=== PATIENT | female | born 1945 | race Caucasian/White ===

== ENCOUNTER 2022-01-11 16:44 | Inpatient (IN) ==
[2022-01-11] MEDS ORDERED: ONDANSETRON 4 MG/2 ML VIAL IV ONE (17:15)
--- NOTE | 2022-01-11 17:17 | Emergency Department Note ---
HPI General Chief complaint: Extremity Injury, Upper Stated complaint: rt shoulder pain Time Seen by Provider: 01/11/22 16:47 Source: patient and EMS Mode of arrival: EMS History of Present Illness HPI Narrative: Narrative: This patient presents by EMS with a complaint of right shoulder and wrist pain following a fall. Patient was getting of the shower when she slipped. She sustained injuries to the right arm and she fell. She reports she did not hit her head or lose consciousness. She noted obvious deformity to the right wrist and requested EMS. EMS placed the arm in a sling and transported her here to the Emergency Department. Unfortunately it was a BLS unit and she was unable to receive any pain medication. She is complaining of significant discomfort to the right arm, primarily the right wrist. She reports no other injuries. Related Data Allergies Allergy/AdvReac Type Severity Reaction Status Date / Time No Known Drug Allergies Allergy Unverified 01/11/22 16:50 Review of Systems ROS ROS Narrative: Narrative: Pertinent positives and negatives as noted in HPI. All other systems reviewed and negative. [facility] Narrative Patient History Narrative: Narrative: Medical/Surgical/Family History All Active Problems (Updated 01/11/22 @ 20:22 by Susy Bateman PA-C) Fracture of humerus (Acute) Fracture of wrist (Acute) Exam Narrative Narrative: Narrative: Vital signs noted General: Moderate distress. Nontoxic Mouth: Mucus membranes moist, Normal inspection Cardiovascular: Regular rate and rhythm. No murmur. Respiratory: No respiratory distress. Breath sounds equal. No wheezes/rales/rhonchi. Musculoskeletal: Obvious deformities right wrist. Neurovascular intact to the digits. Swelling noted to the right shoulder as well. No tenderness to palpation of the elbow. Skin: Warm. Dry. Normal color. No rash Neurological: Alert. Oriented x3. Course Course Course Narrative: IVs established patient medicated with Dilaudid for pain and Zofran for nausea. X-rays of the right wrist and right shoulder reviewed by myself to be significant for fracture of the proximal humeral head as well as distal ulna and radius fractures. Patient is discussed with on-call orthopedic surgeon Dr. Tian who will repair the patient's wrist fracture tomorrow. He also request CT of the humeral head to better determine the morphology of the fracture. Patient is medicated with hematoma block of the ulna and radius and the fracture is reduced is much as possible here in the emergency department. There is still significant displacement after reduction. Patient will be having surgery tomorrow and no further reduction is attempted. Patient is discussed and accepted by the hospitalist service for observational admit of right wrist fracture with anticipation of surgical repair as well as pain management for humeral head fracture and intractable pain Vital Signs Vital signs: Vital Signs Temperature 97.7 F 01/11/22 16:45 Pulse Rate 69 01/11/22 16:45 Respiratory Rate 20 01/11/22 16:45 Blood Pressure 180/87 01/11/22 16:45 Pulse Oximetry (%) 100 01/11/22 16:45 Oxygen Delivery Method 01/11/22 16:45 Temperature 97.7 F 01/11/22 16:45 Pulse Rate 69 01/11/22 19:53 Respiratory Rate 20 01/11/22 16:45 Blood Pressure 143/82 01/11/22 19:53 Pulse Oximetry (%) 93 01/11/22 19:53 Oxygen Delivery Method 01/11/22 16:45 MDM MDM Narrative Medical decision making narrative: Narrative: Discharge Plan Patient/Caregiver Discharge Instructions Pt seen by BOAT REPAIRER/PA only: Yes Clinical Impression: Fracture of humerus, Fracture of wrist Patient Disposition: Xfer As Outpt/Obs ([facility]) Follow up with: Cayetano Ambrose [Primary Care Provider] - Blayne Tian MD [Physician] -
[2022-01-11] MEDS: HYDROmorphone 0.5 MG/0.5 ML SYRINGE IV PRN ×4 (17:37→19:27)
--- NOTE | 2022-01-11 18:08 | XRay Report ---
CLINICAL INFORMATION: Trauma COMPARISON: None. FINDINGS: Sagittal fracture through the lateral humeral and anatomic neck of the humerus appreciated. Lateral fragment displaced 5 mm posteriorly and laterally. Moderate acromioclavicular degeneration noted. The humeral joint is normal. Moderate soft tissue swelling appreciated. IMPRESSION: Sagittally oriented nondisplaced fracture through the humeral head and lateral anatomic neck of the humerus Interpreted and Authenticated by: Vladimir Benavides 01/11/22
--- NOTE | 2022-01-11 18:11 | XRay Report ---
CLINICAL INFORMATION: Trauma COMPARISON: None FINDINGS: Obliquely oriented severely comminuted Colles' fracture of the distal radial metaphysis and epiphysis appreciated. Distal fragment is displaced 2 cm dorsally and there is 30 degrees distal angulation of fracture fragment. There is also moderately comminuted fracture of the distal ulnar metaphysis and epiphysis with the proximal fragment displaced entire shaft width in a volar soft tissues. Marked soft tissue swelling appreciated IMPRESSION: Severely comminuted displaced and angulated Colles' fracture distal radius Severely comminuted fracture distal ulna metaphysis and epiphysis. Proximal fragment is displaced entire shaft width into the bulbar soft tissues. Interpreted and Authenticated by: Vladimir Benavides 01/11/22
--- NOTE | 2022-01-11 20:03 | Internal Med History&Physical ---
HPI History of Present Illness Patient information: Note initiated : 01/11/22 at 7:54 pm Service Date, if different from initiated Date: [] Patient: Danette Benedict a 76 y/o F admitted on for rt shoulder pain. Chief Complaint: [] History of present illness: Ms. Benedict is a 76 year old F Presents to the ED after fall onto her right side getting out of the shower resulting in right shoulder pain and right wrist pain. No loss of consciousness did not hit her head. Patient in significant pain. Because of the severity of the wrist fracture is extremely difficult to reduce and is not maintaining reduction. Work-up in ED showed severely comminuted and displaced Colles' fracture of the wrist And nondisplaced fracture through the humeral head and lateral anatomic neck of the humerus. Dr. Tian was contacted orthopedic surgery. Laboratory pending including chest x-ray and EKG which will be reviewed. Patient has a history of rheumatoid arthritis and osteoporosis. On methotrexate and infusions. Review of Systems: Pertinent positives as above denies headache/fever/chills/nausea/vomiting/chest or abdominal pain/cough/dyspnea/diarrhea. Remaining 10 point review of system reviewed negative PFSH PFSH All Active Problems (Updated 01/11/22 @ 20:22 by Susy Bateman PA-C) Fracture of humerus (Acute) Fracture of wrist (Acute) MEDS/ALLERGIES Home Medications and Allergies Allergies Allergy/AdvReac Type Severity Reaction Status Date / Time No Known Drug Allergies Allergy Unverified 01/11/22 16:50 EXAM Constitutional Vitals: Temp Pulse Resp BP Pulse Ox O2 Del Method 97.7 F 55 L 20 129/71 99 01/11/22 16:45 01/11/22 18:55 01/11/22 16:45 01/11/22 18:46 01/11/22 18:55 01/11/22 16:45 Exam: General: Alert, Awake, mild distress from pain Eyes/N/T: EOMI, PERRL, dry MM Head/Neck: neck supple, normocephalic atraumatic CV: RRR, No murmurs, normal s1/s2 Pulm: Clear b/l, no wheezing/rhonchi/rales Abd: soft, nontender, +BS x4 Ext: no clubbing/cyanosis, trace b/l LE edema. Right shoulder in sling, right wrist in splint Neuro: Alert, no focal deficits, moves all extremities, CN 2-12 grossly intact, sensations intact b/l upper/lower Skin: warm/dry A/P Narrative A/P Narrative: A: *GL Fall w/trauma to RUE: *Right wrist fracture: *Right shoulder fracture: *Rheumatoid arthritis: on MTX *Osteoporosis: *Leukocytosis: Likely reactive, follow-up *Hyponatremia: *Transaminitis: P: -Dr. Tian for orthopedic repair -PT/OT -Pain control -f/u na, lfts, chem, cbc -EKG/chest x-ray pending and will be reviewed -Splint to the right shoulder -wrist in splint -N.p.o. after midnight, IVF -Home medication reconciliation, continue pertinent medications -CM for placement needs -ppx: SCD until surgery and likely chemical postop Time Spent With Patient Time: Total time spent is greater than 50% in coordination of care (as documented) at patient's floor/unit and/or counseling patient: Total time spent with greater than 50% in coordination of care (as documented) at patient's floor/unit and/or counseling patient:: Greater than 70 minutes
[2022-01-11 20:59] LABS: Basophils # (Auto) 0.06 K/mcL (0.00-0.30); Basophils % (Auto) 0.3 % (0.0-2.0); Eosinophils # (Auto) 0.01 K/mcL (0.00-0.70); Eosinophils % (Auto) 0.1 % (0.0-7.0); Hematocrit 38.9 % (34.1-44.9); Lymphocytes # (Auto) 1.29 K/mcL (1.50-4.80); Mean Cell Volume 94.9 fL (80.0-100.0); Mean Corpuscular HGB Conc 33.4 g/dL (31.0-36.0); Platelet Count 248 K/mcL (140-440); Red Cell Distribution Width 12.8 % (11.5-14.5); WBC 18.5 K/mcL (4.5-11.0)
[2022-01-11] MEDS ORDERED: MAGNESIUM SULFATE 2 GM/50 ML BAG IV PRN (21:09)
[2022-01-11] MEDS ORDERED: ACETAMINOPHEN 325 MG TABLET PO PRN (21:09)
[2022-01-11] MEDS ORDERED: POTASSIUM CHLORIDE 20 MEQ TABLET PO PRN ×2 (21:09)
[2022-01-11] MEDS ORDERED: POTASSIUM CHLORIDE 40 MEQ in DEXTROSE 5% IN WATER 500 ML IV PRN (21:09)
[2022-01-11] MEDS ORDERED: ONDANSETRON 4 MG/2 ML VIAL IV PRN (21:09)
[2022-01-11] MEDS ORDERED: SENNOSIDES 1 TABLET PO PRN (21:09)
[2022-01-11] MEDS ORDERED: IPRATROPIUM/ALBUTEROL 3 ML AMPUL.NEB NEB PRN (21:09)
[2022-01-11] MEDS ORDERED: POLYETHYLENE GLYCOL 3350 17 GM PACKET PO PRN (21:09)
[2022-01-11 21:27] LABS: ALT/SGPT 42 U/L (<40); AST/SGOT 41 U/L (<32); Albumin 3.6 gm/dL (3.2-5.2); Albumin/Globulin Ratio 1.1 (1.0-2.3); Alkaline Phosphatase 109 U/L (39-117); Bilirubin,Total 0.5 mg/dL (0.1-1.0); Blood Urea Nitrogen 11 mg/dL (8-23); Carbon Dioxide 25 mmol/L (22-30); Chloride 98 mmol/L (96-108); Globulin 3.2 gm/dL (2.2-3.7); Glomerular Filtration Rate 83; Glucose 187 mg/dL (70-105)
[2022-01-11] MEDS: DOCUSATE SODIUM 100 MG CAPSULE PO SCH (21:41)
[2022-01-11] MEDS: 0.9 % SODIUM CHLORIDE 10 ML SYRINGE IV SCH (21:47)
[2022-01-11] MEDS: HYDROcodone/APAP 5/325MG TABLET PO PRN (22:24)
[2022-01-11] MEDS: 0.9 % SODIUM CHLORIDE 1,000 ML IV SCH (23:31)
[2022-01-11] MEDS: morphine 4 MG/ML VIAL IV PRN (23:31)
--- NOTE | 2022-01-12 01:28 | XRay Report ---
CLINICAL INFORMATION: Postreduction Colles' fracture of the distal radius and distal ulnar fracture COMPARISON: Prereduction films 01/11/2022 1752 hours FINDINGS: Casted films shows comminuted Colles' fracture distal radius shows slight improved alignment. There is still 8 mm of dorsal and radial displacement by the distal fragment. Angulation deformity has been corrected however. The comminuted fracture of the distal ulna is in near-anatomic alignment. There is volar dislocation of the ulnar carpal joint. IMPRESSION: Following closed reduction, persistent displacement deformity of the Colles' fracture. Comminuted ulnar fracture is anatomically aligned, however there is volar dislocation of the ulnar carpal joint Interpreted and Authenticated by: Vladimir Benavides 01/12/22
--- NOTE | 2022-01-12 01:28 | XRay Report ---
CLINICAL INFORMATION: Weakness COMPARISON: 11/27/2013 TECHNIQUE: Portable FINDINGS: The heart size, mediastinum and pulmonary vessels are unremarkable. The lungs are clear. There are no effusions. The bones and soft tissues are within normal limits. IMPRESSION: Normal chest. Interpreted and Authenticated by: Vladimir Benavides 01/12/22
[2022-01-12] MEDS: HYDROcodone/APAP 5/325MG TABLET PO PRN ×5 (01:59→21:43)
--- NOTE | 2022-01-12 02:47 | Cat Scan Report ---
CLINICAL INFORMATION: Trauma COMPARISON: None. TECHNIQUE: 0.625 mm helical slices were obtained through the right shoulder, and following reconstruction, 2.5 mm sagittal, coronal and axial reformations were then processed. The exam was reviewed at bone and soft tissue windows. The exam was performed using radiation dose optimization techniques including, but not limited to, automated exposure control, adjustment of the mA and/or kV according to patient size and use of iterative reconstruction technique. FINDINGS: A severely comminuted fracture involving the humeral head and anatomic neck with extension to the surgical neck is appreciated. The humeral diaphysis is displaced approximately 8 mm anteriorly and is angulated approximately 70 degrees posteriorly. The articulating surface of the humeral head fragment demonstrates posterior rotary subluxation. There are also comminuted fragments involving the greater and lesser tuberosity bases. Moderate edema is seen in the adjacent muscle and fascial planes. The acromial clavicular joint is normal. In the right lung, there is a 2.3 cm bleb in the lateral inferior upper lobe with mild atelectasis present in the posterior lower lobe IMPRESSION: Severely comminuted, displaced and angulated fracture of the humeral head and anatomic neck Interpreted and Authenticated by: Vladimir Benavides 01/12/22
[2022-01-12] MEDS: morphine 4 MG/ML VIAL IV PRN ×3 (04:36→15:59)
[2022-01-12] MEDS: 0.9 % SODIUM CHLORIDE 10 ML SYRINGE IV SCH ×3 (05:36→21:37)
[2022-01-12 07:07] LABS: Basophils # (Auto) 0.05 K/mcL (0.00-0.30); Basophils % (Auto) 0.4 % (0.0-2.0); Eosinophils # (Auto) 0.01 K/mcL (0.00-0.70); Eosinophils % (Auto) 0.1 % (0.0-7.0); Hematocrit 37.5 % (34.1-44.9); Hemoglobin 12.1 g/dL (11.2-15.7); Lymphocytes # (Auto) 2.75 K/mcL (1.50-4.80); Lymphocytes % (Auto) 21.7 % (15.5-49.0); Mean Cell Volume 97.4 fL (80.0-100.0); Mean Corpuscular HGB Conc 32.3 g/dL (31.0-36.0); Mean Platelet Volume 11.1 fL (8.8-12.5); Monocytes # (Auto) 1.75 K/mcL (0.10-0.90); Monocytes % (Auto) 13.8 % (1.0-12.0); Neutrophils % (Auto) 63.4 % (38.0-78.0); Platelet Count 238 K/mcL (140-440); RBC 3.85 M/mcL (3.59-5.38); Red Cell Distribution Width 12.9 % (11.5-14.5); WBC 12.7 K/mcL (4.5-11.0)
--- NOTE | 2022-01-12 07:37 | Internal Med Progress Note ---
SUBJECTIVE Subjective Patient information: Note initiated : 01/12/22 at 7:35 am Service Date, if different from initiated Date: [] Patient: Danette Benedict 76 y/o F admitted on 01/11/22 for rt shoulder pain. Chief Complaint: [] Interval history: History of present illness: Ms. Benedict is a 76 year old F Presents to the ED after fall onto her right side getting out of the shower resulting in right shoulder pain and right wrist pain. No loss of consciousness did not hit her head. Patient in significant pain. Because of the severity of the wrist fracture is extremely difficult to reduce and is not maintaining reduction. Work-up in ED showed severely comminuted and displaced Colles' fracture of the wrist And nondisplaced fracture through the humeral head and lateral anatomic neck of the humerus. Dr. Tian was contacted orthopedic surgery. Laboratory pending including chest x-ray and EKG which will be reviewed. Patient has a history of rheumatoid arthritis and osteoporosis. On methotrexate and infusions. 01/12 Patient postop for ORIF of the wrist. Shoulder in sling. Patient bit drowsy postop. Reactive leukocytosis, sodium a little better. Transaminitis mild improving. Patient also found a fracture of the right tibial plateau. Trauma with multiple fractures. Patient quite debilitated. Further orthopedic treatment. Review of Systems: denies headache/fever/chills/nausea/vomiting/chest or abdominal pain/cough/dyspnea/diarrhea. Otherwise see above. Constitutional Vitals: Vital Signs Temp Pulse Resp BP Pulse Ox O2 Del Method 98.2 F 70 16 131/76 99 01/12/22 07:26 01/12/22 07:26 01/12/22 07:26 01/12/22 07:26 01/12/22 07:26 01/12/22 07:26 Period Temp Pulse Resp BP Sys/Harper Pulse Ox O2 Del Method O2 Flow Rate Last 24 Hr 97.0 F-98.2 F 43-70 16-20 99-180/67-87 93-100 Room Air-Room Air Intake and Output 01/11/22 01/12/22 01/12/22 19:59 03:59 11:59 Intake Total 300 Balance 300 Weight 65.317 kg 62.233 kg Intake & Output: Intake & Output 01/11/22 01/12/22 01/12/22 19:59 03:59 11:59 Intake Total 300 Balance 300 Weight 65.317 kg 62.233 kg Intake: Oral 300 Exam: General: Drowsy, no acute distress Eyes/N/T: EOMI, Head/Neck: neck supple, CV: RRR, No murmurs, Pulm: Clear b/l, no wheezing/rhonchi/rales Abd: soft, nontender, +BS x4 Ext: no clubbing/cyanosis, trace b/l LE edema. Right shoulder in sling, right wrist surgical dressings Neuro: Drowsy, no focal deficits, moves all extremities, Skin: warm/dry OBJ DATA Labs CBC & Chem 7: 01/12/22 05:29 01/12/22 05:29 Labs: Abnormal Lab Results 01/12/22 01/11/22 01/11/22 05:29 20:26 20:26 WBC 12.7 H 18.5 H Immature Gran % (Auto) 0.6 H 0.6 H Neut % (Auto) 85.0 H Lymph % (Auto) 7.0 L [place] % (Auto) 13.8 H Lymph # (Auto) 1.29 L [place] # (Auto) 1.75 H 1.30 H Immature Gran # 0.07 H 0.11 H Absolute Neutrophils 8.04 H 15.76 H Sodium 132 L Glucose 187 H AST 41 H ALT 42 H Meds: Medications Acetaminophen (Acetaminophen 325 Mg Tablet) 650 mg PO Q6HP PRN; Protocol PRN Reason: Per Pain Protocol/Fever > 101 Hydrocodone Bitart/Acetaminophen (Hydrocodone/Apap 5/325mg Tablet) 1 tab PO Q4HP PRN PRN Reason: PAIN LEVEL 3-6 Last Admin: 01/12/22 01:59 Dose: 1 tab Albuterol/Ipratropium (Ipratropium/Albuterol 3 Ml Ampul.Neb) 3 ml NEB Q4HP PRN PRN Reason: Shortness Of Breath Docusate Sodium (Docusate Sodium 100 Mg Capsule) 100 mg PO BID [place] Last Admin: 01/11/22 21:41 Dose: 100 mg Potassium Chloride 40 meq/ (Dextrose) 520 mls @ 130 mls/hr IV UD PRN PRN Reason: Potassium < 3 Magnesium Sulfate (Magnesium Sulfate) 2 gm in 50 mls @ 50 mls/hr IV UD PRN PRN Reason: Magnesium </= 1.6 Sodium Chloride (Sodium Chloride 0.9%) 1,000 mls @ 75 mls/hr IV .[id number] [facility] Stop: 01/13/22 02:34 Last Admin: 01/11/22 23:31 Dose: 75 mls/hr Morphine Sulfate (Morphine 4 Mg/Ml Vial) 0 mg IV Q3HP PRN PRN Reason: Pain Last Admin: 01/12/22 07:26 Dose: 3 mg Ondansetron HCl (Ondansetron 4 Mg/2 Ml Vial) 4 mg IV Q4HP PRN PRN Reason: Nausea And Vomiting Polyethylene Glycol (Polyethylene Glycol 3350 17 Gm Packet) 17 gm PO DAILYP PRN PRN Reason: Constipation Potassium Chloride (Potassium Chloride 20 Meq Tablet) 40 meq PO UD PRN PRN Reason: Potssium is 3-3.5 Potassium Chloride (Potassium Chloride 20 Meq Tablet) 40 meq PO UD PRN PRN Reason: Potassium < 3 Scopolamine (Scopolamine 1 Patch Patch) 1 patch TOPICAL PREOP PRN PRN Reason: Nausea And Vomiting Stop: 01/12/22 17:00 Senna (Sennosides 1 Tablet) 2 tab PO DAILYP PRN PRN Reason: Constipation Sodium Chloride (0.9 % Sodium Chloride 10 Ml Syringe) 10 ml IV Q8 [facility] Last Admin: 01/12/22 05:36 Dose: Not Given A/P Narrative A/P Narrative: A: *GL Fall w/trauma and multiple Fx's: *Right wrist fracture: s/p ORIF (01/12) *Right shoulder fracture: *Right Tibial Plateau fracture: *Rheumatoid arthritis: on MTX *Osteoporosis: *Leukocytosis: Likely reactive, follow-up *Hyponatremia: Proving *Transaminitis: Improving P: -Dr. Tian for orthopedic repair -PT/OT -Pain control -f/u na, lfts, chem, cbc -EKG/chest x-ray reviewed -Splint to the right shoulder -wrist in splint - -CM for placement needs -ppx: SCD until surgery and likely chemical postop Time Spent With Patient Time: Total time spent is greater than 50% in coordination of care (as documented) at patient's floor/unit and/or counseling patient: Total time spent with greater than 50% in coordination of care (as documented) at patient's floor/unit and/or counseling patient:: 35 - 50 minutes
[2022-01-12 07:55] LABS: ALT/SGPT 36 U/L (<40); AST/SGOT 32 U/L (<32); Albumin 3.4 gm/dL (3.2-5.2); Albumin/Globulin Ratio 1.2 (1.0-2.3); Alkaline Phosphatase 91 U/L (39-117); Bilirubin,Direct < 0.2 mg/dL (0-0.3); Bilirubin,Total 0.6 mg/dL (0.1-1.0); Blood Urea Nitrogen 12 mg/dL (8-23); Calcium 8.8 mg/dL (8.6-10.4); Carbon Dioxide 23 mmol/L (22-30); Chloride 101 mmol/L (96-108); Globulin 2.9 gm/dL (2.2-3.7); Glomerular Filtration Rate 83; Glucose 119 mg/dL (70-105); Lactate Dehydrogenase 207 U/L (135-225); Triglycerides 66 mg/dL (<150); Uric Acid 4.2 mg/dL (2.5-8.0)
[2022-01-12] MEDS ORDERED: ceFAZolin 2 GM in DEXTROSE 5% IN WATER 50 ML IV SCH (08:00)
[2022-01-12] MEDS ORDERED: LIDOCAINE HCL/PF 100 MG/5 ML SYRINGE IV ONE (08:07)
[2022-01-12] MEDS ORDERED: MAGNESIUM SULFATE 2 GM/50 ML BAG IV ONE (08:07)
[2022-01-12] MEDS ORDERED: DEXAMETHASONE 10 MG/ML VIAL ONE (08:07)
[2022-01-12] MEDS ORDERED: ONDANSETRON 4 MG/2 ML VIAL ONE (08:07)
[2022-01-12] MEDS ORDERED: GLYCOPYRROLATE 0.2 MG/ML VIAL IV ONE (08:07)
[2022-01-12] MEDS ORDERED: fentaNYL 100 MCG/2 ML VIAL IV ONE (08:07)
[2022-01-12] MEDS ORDERED: KETAMINE 50 MG/ML Syringe (ANEST) IV ONE (08:07)
[2022-01-12] MEDS ORDERED: ROPIVACAINE HCL/PF 30 ML VIAL IJ ONE (08:07)
[2022-01-12] MEDS ORDERED: MIDAZOLAM 2 MG/2 ML VIAL ONE (08:07)
[2022-01-12] MEDS ORDERED: PHENYLephrine 1 MG/10 ML SYRINGE (ANEST) ONE (08:07)
[2022-01-12] MEDS ORDERED: TRANEXAMIC ACID 1,000 MG/10 ML VIAL ONE (08:07)
[2022-01-12] MEDS ORDERED: PROPOFOL 200 MG/20 ML VIAL IV ONE (08:07)
[2022-01-12] MEDS ORDERED: LACTATED RINGERS 250 ML IV PRN (08:28)
[2022-01-12] MEDS ORDERED: NALOXONE HCL 0.4 MG/ML VIAL IV PRN (08:28)
[2022-01-12] MEDS ORDERED: FLUMAZENIL 0.1 MG/ML ML IV PRN (08:28)
[2022-01-12] MEDS ORDERED: MEPERIDINE 25 MG/ML VIAL IV PRN (08:28)
[2022-01-12] MEDS ORDERED: IPRATROPIUM/ALBUTEROL 3 ML AMPUL.NEB NEB PRN (08:28)
[2022-01-12] MEDS ORDERED: ONDANSETRON 4 MG/2 ML VIAL IV PRN (08:28)
[2022-01-12] MEDS ORDERED: LABETALOL 5 MG/ML ML IV PRN (08:28)
[2022-01-12] MEDS ORDERED: fentaNYL 100 MCG/2 ML VIAL IV PRN (08:28)
[2022-01-12] MEDS ORDERED: METHOCARBAMOL 1,000 MG/10 ML VIAL IV PRN (08:28)
[2022-01-12] MEDS ORDERED: METOPROLOL TARTRATE 5 MG/5 ML VIAL IV PRN (08:28)
[2022-01-12] MEDS ORDERED: ACETAMINOPHEN 1,000 MG/100 ML BAG IV ONE (08:28)
--- NOTE | 2022-01-12 08:29 | Consultation ---
DATE OF CONSULTATION: 01/12/2022 REASON FOR CONSULTATION: Right wrist fracture and proximal humerus fracture. HISTORY OF PRESENT ILLNESS: This is a 76-year-old female who yesterday was getting out of the shower and fell, injuring her right side upper extremity and complained of severe wrist pain and shoulder pain. She is also complaining of right lower extremity pain, essentially the entire leg. This was not worked up with imaging in the ER, however. She is left-hand dominant. Pain is improved with immobility, worsened with movement. PAST MEDICAL HISTORY: Rheumatoid arthritis and osteoporosis. MEDICATIONS: Methotrexate. ALLERGIES: No known drug allergies. PHYSICAL EXAMINATION: VITAL SIGNS: On admission, temperature 97.7, pulse 55, respirations 20, blood pressure 129/71. GENERAL: This morning, she appears alert and awake, in no acute distress. EXTREMITIES: Inspection of the right upper extremity reveals a sugar-tong splint in place on the right wrist. Fingers are neurovascularly intact. She has limited mobility of the shoulder secondary to pain, and it is tender to palpation. Left upper extremity and lower extremity show no obvious evidence of injury and are normal to inspection, range of motion, stability, and strength. Right lower extremity is exquisitely painful diffusely, both with movement and palpation. There is no instability noted. RADIOGRAPHS: X-rays reviewed of the distal radius shows a severely comminuted distal radius and ulna fracture. There was attempt at reduction last night, which did improve the alignment somewhat. Proximal humerus x-ray and CT reviewed shows what appears to be a severely comminuted 3-part proximal humerus fracture with still reasonable position of the humeral head with respect to the shaft. X-rays were taken this morning of the tib-fib, which shows prior ankle hardware from a prior fracture. Otherwise, no other fractures noted. IMPRESSION: 1. Closed severely comminuted distal radius and ulna fracture in a 76-year-old, left-hand dominant female. 2. A comminuted 3-part right proximal humerus fracture in reasonable alignment. 3. Right lower extremity pain; without evidence of fracture. My suspicion at this point is she might have caused a nerve root impingement on her lower lumbar spine causing radicular symptoms. PLAN: I recommend proceeding right away with open treatment and internal fixation of the right closed distal radius fracture. The ulna will not need fixation. I discussed with her regarding the proximal humerus, I would normally try and manage this initially nonoperatively. If it heals and she does not have significant pain or limited function, then no further treatment will be necessary. If this continues to bother her after the fracture is healed, then I would recommend a reverse total shoulder arthroplasty at a later date. Regarding the leg, it does not look like there is any immediate treatment required, so we will manage this symptomatically. I did discuss risks of surgery, which include, but are not limited to, bleeding; infection; injury to nerves, blood vessels, other surrounding structures; anesthetic risks; nonunion or malunion of the fracture; failure of hardware fixation; possibility of needing further surgery. She understood and wished to proceed. [email or web address] Job ID: [id number] Doc ID: [id number] Blayne Tian MD
[2022-01-12] MEDS ORDERED: LACTATED RINGERS 1,000 ML IV SCH (08:30)
--- NOTE | 2022-01-12 08:45 | XRay Report ---
CLINICAL INFORMATION: Trauma COMPARISON: None FINDINGS: A transverse band of sclerosis extends across the lateral tibial epiphysis which may represent compacted trabeculae from an impacted tibial plateau fracture. Suggest CT. Old lateral and medial malleolar fractures have been transfixed by plate and screws and are solidly unified in anatomic alignment. There is calcification across the distal tibial fibular syndesmosis. Mild degeneration present in the ankle mortise and the patellofemoral joint. Moderate suprapatellar effusion also seen. IMPRESSION: Possible impacted fracture of the lateral tibial plateau. Suggest knee CT. Moderate effusion in the suprapatellar bursa Interpreted and Authenticated by: Vladimir Benavides 01/12/22
[2022-01-12] MEDS: DOCUSATE SODIUM 100 MG CAPSULE PO SCH ×2 (08:47→21:38)
--- NOTE | 2022-01-12 09:07 | Brief Operative Note ---
Brief Operative Note Date of procedure: 01/12/22 Pre-op diagnosis: severely comminuted distal radius fracture, intra-articular, closed Post-op diagnosis: same Procedure: open treatment internal fixation of right intra-articular closed distal radius fracture, more than 3 fragments Grafts/Implants: Yes ([employer] plate, DBX putty) Anesthesia: GLMA Findings: severe comminution, severe osteopenia Complications: none Surgeon: Blayne Tian Steward/Stewardess Third Class: Frankie Oseguera Estimated blood loss (cc): 10 Specimens Removed/Pathology: none sent Condition: stable Disposition: PACU
--- NOTE | 2022-01-12 09:53 | Operative Note ---
DATE OF OPERATION: 01/12/2022 PREOPERATIVE DIAGNOSIS: Closed, severely-comminuted right distal radius fracture. POSTOPERATIVE DIAGNOSIS: Closed, severely-comminuted, intra-articular right distal radius fracture. PROCEDURE PERFORMED: Open treatment and internal fixation of a severely-comminuted, intra-articular, closed right distal radius fracture, more than three fragments using a [employer] plate. SURGEON: Blayne Tian M.D. MOTION PICTURE SET GRIP: Mike Oseguera PA-C. The PA's assistance was required for the safe and efficient completion of the entire case. This provider's expertise and technical skill were required throughout the case. The PA assisted with preoperative coordination, intraoperative retraction, wound closure, dressing and splint application, as well as postoperative documentation and care coordination. ANESTHESIA: General. DRAINS: None. SPECIMENS: None. COMPLICATIONS: None. ESTIMATED BLOOD LOSS: 10 mL. POSTOPERATIVE CONDITION: Stable. INDICATIONS FOR SURGERY: This is a 76-year-old female who sustained a fall, injuring her right wrist and shoulder. X-ray showed a severely-comminuted distal radius and ulna fracture as well as a comminuted right proximal humerus fracture. We are going to initially manage the proximal humerus fracture, closed. FINDINGS AT SURGERY: There was severe comminution of the distal radius that was extremely unstable, and there was significant intra-articular extension. Post-fixation showed satisfactory congregation of radial inclination and volar tilt, and range of motion did not reveal crepitation. PROCEDURE IN DETAIL: The patient had been seen preoperatively and informed consent had been obtained after discussion of risks and benefits of surgery. Risks including, but not limited to, bleeding; infection; injury to nerves, blood vessels, other surrounding structures; anesthetic risks; nonunion or malunion of the fracture; failure of hardware fixation; possibility of needing further surgery. She understood and wished to proceed. Correct operative site was marked in preoperative holding, and the patient was taken to the operating room. General anesthesia was induced. Right upper extremity was carefully prepped and draped in normal sterile fashion. A timeout was performed verifying patient name, operative site, and plan. Esmarch was used to exsanguinate the extremity, and tourniquet was inflated to 250 mmHg. The fingers were covered with Coban and then a volar Raman incision was made over the flexor carpi radialis tendon with a scalpel through skin and subcutaneous tissue. We incised through the peritenon and then the tendon was retracted and the floor of the tendon sheath was incised sharply with the scalpel. Careful blunt dissection was taken radial to the FPL and down onto the pronator quadratus. Her pronator quadratus was very thin and damaged from the fracture. Upon exposing the fracture, there were multiple loose fragments, and it was extremely unstable. I did try and get some preliminary fixation after reduction maneuver, placing a K-wire through the radial styloid retrograde. We checked with fluoroscopy and this held some reasonable position. I then chose a 4-hole DVR standard plate from [employer]. I positioned this approximate fit and pinned it into place. The position looked close, so I went ahead and drilled and placed the slotted screw. I then made minor adjustment with the plate to fit volarly and get as distal as possible without protruding into the joint. We then drilled and placed the remaining shaft screws bicortical. I then proceeded with holding the wrist with traction and ulnar deviated in volar flexion and then started drilling and placing the radial styloid pegs to hold our radial inclination. We continued then drilling and filling the remaining distal holes in the plate with smooth locking pegs. Once all of the holes were filled, we checked with fluoroscopy. The plate position and hardware looked satisfactory as did the fracture reduction. I flexed and extended the wrist as well as radial and ulnar deviated. There was no crepitation to indicate hardware impinging. Those images were saved. We irrigated with IrriSept, after a minute irrigated with saline. There was really no pronator to repair, so we just went right to the subcutaneous closure with Monocryl and then a nylon running stitch for skin. Local anesthetic was injected. Sterile dressing was applied. Tourniquet was released. She was placed in a carpal tunnel brace, and then due to her proximal humerus fracture, she was placed in an abductor immobilizer as well. She was then awakened, extubated, and transferred to recovery in satisfactory condition. TRUONG:angela Job ID: [id number] Doc ID: [id number] Blayne Tian MD
[2022-01-12] MEDS: 0.9 % SODIUM CHLORIDE 1,000 ML IV SCH (11:18)
[2022-01-12] MEDS ORDERED: SCOPOLAMINE 1 PATCH PATCH TOPICAL PRN (12:00)
--- NOTE | 2022-01-12 12:26 | Internal Med Progress Note ---
SUBJECTIVE Subjective Patient information: Note initiated : 01/12/22 at 12:24 pm Service Date, if different from initiated Date: [] Patient: Danette Benedict 76 y/o F admitted on 01/11/22 for rt shoulder pain. Chief Complaint: [] Interval history: 01/13 Vitals stable overnight, patient's main complaint is right leg pain, plan is for right tibial plateau fracture ORIF today. Physical exam Head: Atraumatic, normal inspection. Eyes: normal appearance, no scleral icterus. Neck: full ROM Respiratory: no respiratory distress. Cardiovascular: normal rate and rhythm, S1, S2. GI/Abdominal: soft, nontender, no guarding. Extremities: Right lower extremity tenderness, right upper extremity in sling Neurological: CN II-XII intact, intact motor, intact sensation. Psychiatric: normal mood. Skin: warm, normal color Constitutional Vitals: Vital Signs Temp Pulse Resp BP Pulse Ox O2 Del Method O2 Flow Rate 97.2 F 73 15 115/74 96 6 01/12/22 10:27 01/12/22 10:27 01/12/22 10:27 01/12/22 10:27 01/12/22 10:27 01/12/22 09:41 01/12/22 09:41 Period Temp Pulse Resp BP Sys/Harper Pulse Ox O2 Del Method O2 Flow Rate Last 24 Hr 97.0 F-98.2 F 43-82 12-20 99-180/63-87 93-100 Room Air-Simple Mask 6-6 Intake and Output 01/12/22 01/12/22 01/12/22 03:59 11:59 19:59 Intake Total 2934 Balance 2934 Weight 62.233 kg Intake & Output: Intake & Output 01/12/22 01/12/22 01/12/22 03:59 11:59 19:59 Intake Total 2934 Balance 2934 Weight 62.233 kg Intake: IV 1034 Sodium Chloride 0.9% 1,000 ml @ 884 75 mls/hr IV .[id number] [place] Rx#: [id number] Ancef 2 gm In Dextrose 5% in 50 Water 50 ml @ 100 mls/hr IV PREOP [place] Rx#:[id number] Oral 300 IV - Manual Only 1600 OBJ DATA Labs CBC & Chem 7: 01/13/22 05:30 01/13/22 05:30 Labs: Abnormal Lab Results 01/12/22 01/12/22 01/11/22 05:29 05:29 20:26 WBC 12.7 H Immature Gran % (Auto) 0.6 H Neut % (Auto) Lymph % (Auto) [place] % (Auto) 13.8 H Lymph # (Auto) [place] # (Auto) 1.75 H Immature Gran # 0.07 H Absolute Neutrophils 8.04 H Sodium 132 L Glucose 119 H 187 H AST 32 H 41 H ALT 42 H 01/11/22 20:26 WBC 18.5 H Immature Gran % (Auto) 0.6 H Neut % (Auto) 85.0 H Lymph % (Auto) 7.0 L Weak[place] % (Auto) Lymph # (Auto) 1.29 L [place] # (Auto) 1.30 H Immature Gran # 0.11 H Absolute Neutrophils 15.76 H Sodium Glucose AST ALT Meds: Medications Acetaminophen (Acetaminophen 325 Mg Tablet) 650 mg PO Q6HP PRN; Protocol PRN Reason: Per Pain Protocol/Fever > 101 Hydrocodone Bitart/Acetaminophen (Hydrocodone/Apap 5/325mg Tablet) 1 tab PO Q4HP PRN PRN Reason: PAIN LEVEL 3-6 Last Admin: 01/12/22 01:59 Dose: 1 tab Albuterol/Ipratropium (Ipratropium/Albuterol 3 Ml Ampul.Neb) 3 ml NEB Q4HP PRN PRN Reason: Shortness Of Breath Docusate Sodium (Docusate Sodium 100 Mg Capsule) 100 mg PO BID [facility] Last Admin: 01/12/22 08:47 Dose: Not Given Potassium Chloride 40 meq/ (Dextrose) 520 mls @ 130 mls/hr IV UD PRN PRN Reason: Potassium < 3 Magnesium Sulfate (Magnesium Sulfate) 2 gm in 50 mls @ 50 mls/hr IV UD PRN PRN Reason: Magnesium </= 1.6 Sodium Chloride (Sodium Chloride 0.9%) 1,000 mls @ 75 mls/hr IV .[id number] [facility] Stop: 01/13/22 02:34 Last Admin: 01/12/22 11:18 Dose: 75 mls/hr Morphine Sulfate (Morphine 4 Mg/Ml Vial) 0 mg IV Q3HP PRN PRN Reason: Pain Last Admin: 01/12/22 07:26 Dose: 3 mg Ondansetron HCl (Ondansetron 4 Mg/2 Ml Vial) 4 mg IV Q4HP PRN PRN Reason: Nausea And Vomiting Polyethylene Glycol (Polyethylene Glycol 3350 17 Gm Packet) 17 gm PO DAILYP PRN PRN Reason: Constipation Potassium Chloride (Potassium Chloride 20 Meq Tablet) 40 meq PO UD PRN PRN Reason: Potssium is 3-3.5 Potassium Chloride (Potassium Chloride 20 Meq Tablet) 40 meq PO UD PRN PRN Reason: Potassium < 3 Scopolamine (Scopolamine 1 Patch Patch) 1 patch TOPICAL PREOP PRN PRN Reason: Nausea And Vomiting Stop: 01/12/22 17:00 Senna (Sennosides 1 Tablet) 2 tab PO DAILYP PRN PRN Reason: Constipation Sodium Chloride (0.9 % Sodium Chloride 10 Ml Syringe) 10 ml IV Q8 [place] Last Admin: 01/12/22 05:36 Dose: Not Given A/P Narrative A/P Narrative: Assessment:76-year-old female with a history of osteoporosis, Rheumatoid arthritis on Methotrexate admitted for multiple fractures sustained from a ground-level fall. The patient has a right wrist fracture status post ORIF 1115, a right shoulder fracture managed conservatively and a right tibial plateau fracture. *GL Fall w/trauma and multiple Fx's: *Right wrist fracture: s/p ORIF (01/12) *Right shoulder fracture: *Right Tibial Plateau fracture: *Rheumatoid arthritis: on MTX *Osteoporosis: *Leukocytosis: Likely reactive, follow-up *Resolved hyponatremia *Resolved transaminitis P: -Dr. Tian for orthopedic repair -PT/OT -Pain control -f/u na, lfts, chem, cbc -Splint to the right shoulder -wrist in splint -CM for placement needs -ppx: SCD until surgery and likely chemical postop Time Spent With Patient Time: Total time spent is greater than 50% in coordination of care (as documented) at patient's floor/unit and/or counseling patient:
[2022-01-12] MEDS: 0.45 % SODIUM CHLORIDE 1,000 ML IV SCH (21:43)
[2022-01-13] MEDS: morphine 4 MG/ML VIAL IV PRN ×4 (02:39→21:45)
--- NOTE | 2022-01-13 03:50 | Cat Scan Report ---
CLINICAL INFORMATION: Trauma COMPARISON: Plain films 01/12/2022 TECHNIQUE: 0.625 mm helical slices were obtained from the mid femoral diaphysis in the mid tibia and fibular diaphysis. Following reconstruction, 2.5 mm sagittal, coronal and axial reformations were processed. The exam was reviewed in bone and soft tissue windows. The exam was performed using radiation dose optimization techniques including, but not limited to, automated exposure control, adjustment of mA and/or kV according to patient size and use of iterative reconstruction technique. FINDINGS: A moderately comminuted impacted fracture extending through the entire lateral tibial plateau. It shows 12 mm of fracture fragment depression and trabecular impaction. Fracture line extends to the inner eminence region. Moderate lipohemarthrosis seen in the patellofemoral compartment. Anterior/posterior cruciate, medial collateral ligament and extensor mechanism are suboptimally visualized, but appear grossly intact. Both menisci are grossly intact.There is almost certainly a tear of the lateral collateral ligament from trauma mechanism. This is not specifically visualized. Muscle and fascial planes otherwise normal IMPRESSION: Moderately comminuted fracture of the entire lateral tibial plateau with 12 mm depression and trabecular impaction. Moderate lipohemarthrosis Interpreted and Authenticated by: Vladimir Benavides 01/13/22
[2022-01-13] MEDS: HYDROcodone/APAP 5/325MG TABLET PO PRN ×2 (04:13→19:28)
[2022-01-13] MEDS: 0.9 % SODIUM CHLORIDE 10 ML SYRINGE IV SCH ×3 (05:03→21:46)
[2022-01-13 07:15] LABS: Basophils # (Auto) 0.03 K/mcL (0.00-0.30); Basophils % (Auto) 0.2 % (0.0-2.0); Eosinophils # (Auto) 0.03 K/mcL (0.00-0.70); Eosinophils % (Auto) 0.2 % (0.0-7.0); Hematocrit 29.8 % (34.1-44.9); Hemoglobin 9.9 g/dL (11.2-15.7); Lymphocytes # (Auto) 3.54 K/mcL (1.50-4.80); Lymphocytes % (Auto) 25.2 % (15.5-49.0); Mean Cell Volume 97.1 fL (80.0-100.0); Mean Corpuscular HGB Conc 33.2 g/dL (31.0-36.0); Mean Platelet Volume 11.5 fL (8.8-12.5); Monocytes % (Auto) 16.3 % (1.0-12.0); Neutrophils % (Auto) 57.5 % (38.0-78.0); Platelet Count 204 K/mcL (140-440); RBC 3.07 M/mcL (3.59-5.38); Red Cell Distribution Width 13.2 % (11.5-14.5); WBC 14.1 K/mcL (4.5-11.0)
[2022-01-13 07:52] LABS: ALT/SGPT 23 U/L (<40); AST/SGOT 22 U/L (<32); Albumin 3.1 gm/dL (3.2-5.2); Albumin/Globulin Ratio 1.2 (1.0-2.3); Alkaline Phosphatase 78 U/L (39-117); Bilirubin,Direct < 0.2 mg/dL (0-0.3); Bilirubin,Total 0.5 mg/dL (0.1-1.0); Blood Urea Nitrogen 12 mg/dL (8-23); Calcium 8.3 mg/dL (8.6-10.4); Carbon Dioxide 24 mmol/L (22-30); Chloride 106 mmol/L (96-108); Globulin 2.5 gm/dL (2.2-3.7); Glomerular Filtration Rate 87; Glucose 110 mg/dL (70-105); Lactate Dehydrogenase 158 U/L (135-225); Triglycerides 65 mg/dL (<150); Uric Acid 3.2 mg/dL (2.5-8.0)
[2022-01-13] MEDS: DOCUSATE SODIUM 100 MG CAPSULE PO SCH ×2 (09:22→21:45)
[2022-01-13] MEDS: 0.45 % SODIUM CHLORIDE 1,000 ML IV SCH (09:42)
[2022-01-13] MEDS ORDERED: ceFAZolin 2 GM in DEXTROSE 5% IN WATER 50 ML IV SCH ×2 (13:00→15:45)
[2022-01-13] MEDS ORDERED: ONDANSETRON 4 MG/2 ML VIAL ONE (14:20)
[2022-01-13] MEDS ORDERED: PROPOFOL 200 MG/20 ML VIAL IV ONE (14:20)
[2022-01-13] MEDS ORDERED: HYDROmorphone 1 MG/ML SYRINGE ONE (14:20)
[2022-01-13] MEDS ORDERED: LIDOCAINE HCL/PF 100 MG/5 ML SYRINGE IV ONE (14:20)
[2022-01-13] MEDS ORDERED: KETAMINE 50 MG/ML Syringe (ANEST) IV ONE (14:20)
[2022-01-13] MEDS ORDERED: MAGNESIUM SULFATE 2 GM/50 ML BAG IV ONE (14:20)
[2022-01-13] MEDS ORDERED: LACTATED RINGERS 250 ML IV PRN (15:04)
[2022-01-13] MEDS ORDERED: IPRATROPIUM/ALBUTEROL 3 ML AMPUL.NEB NEB PRN (15:04)
[2022-01-13] MEDS ORDERED: ONDANSETRON 4 MG/2 ML VIAL IV PRN (15:04)
[2022-01-13] MEDS ORDERED: ACETAMINOPHEN 1,000 MG/100 ML BAG IV ONE (15:04)
[2022-01-13] MEDS ORDERED: diphenhydrAMINE 50 MG/ML VIAL IV PRN (15:04)
[2022-01-13] MEDS ORDERED: PROMETHAZINE 25 MG/ML VIAL IV PRN (15:04)
[2022-01-13] MEDS ORDERED: NALOXONE HCL 0.4 MG/ML VIAL IV PRN (15:04)
[2022-01-13] MEDS ORDERED: MEPERIDINE 25 MG/ML VIAL IV PRN (15:04)
[2022-01-13] MEDS ORDERED: LACTATED RINGERS 1,000 ML IV SCH (15:15)
--- NOTE | 2022-01-13 15:35 | Brief Operative Note ---
Brief Operative Note Date of procedure: 01/13/22 Pre-op diagnosis: Right shatzger 3 lateral compression tibial pateau fx Post-op diagnosis: same Procedure: Open treatment internal fixation of right lateral tibial plateau fx Grafts/Implants: Yes ([place] plate, Norian bone void filler) Anesthesia: GLMA Findings: severe compression of lateral tibial plateau, severe osteoporosis Complications: none Surgeon: Blayne Tian Adjunct Trainer: Frankie Oseguera Estimated blood loss (cc): 50 Specimens Removed/Pathology: none sent Condition: stable Disposition: PACU
--- NOTE | 2022-01-13 16:11 | Operative Note ---
DATE OF OPERATION: 01/13/2022 PREOPERATIVE DIAGNOSIS: Right closed Schatzker III lateral depression tibial plateau fracture. POSTOPERATIVE DIAGNOSIS: Right closed Schatzker III lateral depression tibial plateau fracture. PROCEDURE PERFORMED: Open treatment and internal fixation of the right lateral tibial plateau fracture using a Cleves proximal tibial plate with Norian Bone Void Filler. SURGEON: Blayne Tian M.D. COUNTY DIRECTOR WELFARE: Mike Oseguera PA-C. The PA's assistance was required for the safe and efficient completion of the entire case. This provider's expertise and technical skill were required throughout the case. The PA assisted with preoperative coordination, intraoperative retraction, wound closure, dressing and splint application, as well as postoperative documentation and care coordination. ANESTHESIA: General. DRAINS: None. SPECIMENS: None. COMPLICATIONS: None. ESTIMATED BLOOD LOSS: Minimal. POSTOPERATIVE CONDITION: Stable. INDICATIONS FOR SURGERY: This is a 76-year-old female who is having significant right leg pain. Initial x-rays were not obvious for fracture; however, she continued to have pain and a CT was obtained, which showed a tibial plateau fracture with depression. FINDINGS AT SURGERY: Severely depressed lateral tibial plateau fracture, Schatzker III type, with extremely poor quality bone. Post implantation showed relative shinto of articular surface laterally with hardware in satisfactory position. PROCEDURE IN DETAIL: The patient had been seen preoperatively. Informed consent had been obtained after discussion of risks and benefits of surgery. Risks including, but not limited to, bleeding; infection; injury to nerves, blood vessels, other surrounding structures; anesthetic risks; nonunion or malunion of the fracture; failure of hardware fixation, this being a significant possibility given her very poor bone quality; stiffness; pain; development of arthrosis; possibly of needing further surgery, such as total knee arthroplasty. She understood and wished to proceed. Correct operative site was marked in preoperative holding, and patient was taken to the operating room. General anesthesia was induced. The right lower extremity was carefully prepped and draped in normal sterile fashion and a timeout was performed verifying patient name, operative site, and plan. Esmarch was used to exsanguinate the extremity and tourniquet was inflated. A curvilinear lateral incision was made laterally over the proximal tibia with a scalpel through skin and subcutaneous tissue. We continued down onto the periosteum, which we incised with the Bovie in line with the incision. We then exposed the anterior lateral proximal tibia subperiosteally with the Bovie, also extending distally some into the shaft with a Thao elevator. There was no visible break in the lateral cortical surface, so we used a drill pin to make four holes and then connected the dots with an osteotome, removing a bone window. The bone window piece was marked for orientation. I then used a bone tamp and elevated. Again, her bone quality was very poor, which limited how hard I could really push on the fractured fragment. I was able to get the articular surface elevated what appeared to be close to its normal position. This did leave quite a void in its place and due to her very poor bone quality, I used Norian bone void filler and injected this into the defect. We then re-placed the bone window over top and then positioned the Cleves proximal tibial plate best fit along the curvature of her proximal tibia. We pinned this in place with K-wires and checked with fluoroscopy. Once we liked our position, I started drilling first slotted screw in the midportion of the plate to try and reduce the plate to bone. I then still had the plate lifting off the bone distally, so I went to the distal-most hole and drilled and placed a bicortical nonlocking screw, which reduced the plate down to the bone. We then began placing locking screws up the shaft and then the proximal cluster was also drilled using fluoroscopic guidance and then locking screws placed. Proximally, we were careful to leave these short of the cortical bone on the far side. There were two remaining screws that were nonlocking which we drilled and placed. Again, these screws did not get great purchase due to her poor bone quality. Once all the hardware was placed, K-wires were removed. AP and lateral x-rays were taken with fluoroscopy and saved. We irrigated with IrriSept copiously, after a minute irrigated with saline copiously. A #1 Vicryl was used to close the periosteum as much as possible over the plate. More IrriSept was irrigated, after a minute more saline, and then 2-0 Monocryl was used for subcutaneous, liberty for skin. Local anesthetic was injected. Sterile dressing was applied. Tourniquet was released and a hinged knee ranger short was placed. The patient was then awakened, extubated, and transferred to recovery in stable condition. TRUONG:angela Job ID: [id number] Doc ID: [id number] Blayne Tian MD
--- NOTE | 2022-01-13 16:21 | XRay Report ---
CLINICAL INFORMATION: ORIF lateral tibial plateau fracture COMPARISON: None FINDINGS: Digital images from the OR show the lateral tibial plateau fracture has been reduced to anatomic alignment and transfixed by lateral plate and multiple screws. There is also a small amount of cement in the fracture fragment regions. Alignment is anatomic. The tibiofemoral and patellofemoral joint spaces appear congruent. Total fluoroscopy time 0.4 minutes. IMPRESSION: ORIF lateral tibial plateau fracture now anatomically aligned Interpreted and Authenticated by: Vladimir Benavides 01/13/22
[2022-01-13] MEDS: fentaNYL 100 MCG/2 ML VIAL IV PRN ×4 (16:38→16:57)
--- NOTE | 2022-01-13 18:14 | EKG ---
[facility] Test Date: 2022-01-11 Pat Name: Danette Benedict Department: [facility] Room: 129 Gender: Female Disability Coordinator: : 1945 Requested By: Miquel Umana Order Number: [id number] Reading MD: Bobby Pepper Measurements Intervals [place] Rate: 65 P: 15 PA: 146 QRS: -1 QRSD: 91 T: 35 QT: 407 QTc: 424 Interpretive Statements Sinus rhythm Low voltage, precordial leads Abnormal R-wave progression, early transition Electronically Signed On 01-13-2022 18:14:07 PST by Bobby Pepper /store/M0/[id number]
[2022-01-13] MEDS: ceFAZolin 1 GM VIAL IV SCH (21:44)
[2022-01-14] MEDS: HYDROcodone/APAP 5/325MG TABLET PO PRN ×5 (00:14→20:55)
[2022-01-14] MEDS: ceFAZolin 1 GM VIAL IV SCH (03:56)
[2022-01-14] MEDS: 0.45 % SODIUM CHLORIDE 1,000 ML IV SCH ×3 (03:57→19:14)
[2022-01-14] MEDS: morphine 4 MG/ML VIAL IV PRN ×3 (07:35→19:09)
[2022-01-14] MEDS: 0.9 % SODIUM CHLORIDE 10 ML SYRINGE IV SCH ×3 (07:36→20:55)
[2022-01-14] MEDS: ENOXAPARIN 40 MG/0.4 ML SYRINGE SQ SCH (07:36)
[2022-01-14] MEDS: DOCUSATE SODIUM 100 MG CAPSULE PO SCH ×2 (07:36→20:55)
--- NOTE | 2022-01-14 09:48 | Orthopedic Progress Note ---
SUBJECTIVE Subjective Patient information: Note initiated : 01/14/22 at 9:43 am Service Date, if different from initiated Date: [] Patient: Danette Benedict 76 y/o F admitted on 01/11/22 for rt shoulder pain. Chief Complaint: [] Principal diagnosis: R proximal humerus fracture, R distal radius fracture, R tibial plateau fx Interval history: pain controlled at rest Constitutional Vitals: Vital Signs Temp Pulse Resp BP Pulse Ox O2 Del Method O2 Flow Rate 99.2 F H 83 20 128/67 96 2 01/14/22 07:37 01/14/22 04:00 01/14/22 07:37 01/14/22 07:37 01/14/22 07:37 01/14/22 07:37 01/14/22 00:03 Period Temp Pulse Resp BP Sys/Harper Pulse Ox O2 Del Method O2 Flow Rate Last 24 Hr 97.0 F-99.2 F 63-92 10-28 100-154/55-114 87-100 Nasal Cannula- Room Air 0-6 Intake and Output 01/13/22 01/14/22 01/14/22 19:59 03:59 11:59 Intake Total 1150 1000 200 Output Total 175 2000 Balance 975 1000 -1800 Weight 151 lb 12.8 oz Intake & Output: Intake & Output 01/13/22 01/14/22 01/14/22 19:59 03:59 11:59 Intake Total 1150 1000 200 Output Total 175 2000 Balance 975 1000 -1800 Weight 151 lb 12.8 oz Intake: IV 150 1000 Sodium Chloride 0.45% 1,000 ml 1000 @ 75 mls/hr IV .[id number] [facility] Rx# :[id number] Ancef 2 gm In Dextrose 5% in 50 Water 50 ml @ 100 mls/hr IV PREOP [facility] Rx#:[id number] Oral 200 IV - Manual Only 1000 Output: Urine Catheter Amount 125 2000 Estimated Blood Loss 50 Other: Urine Appearance Clear Clear Uretheral (Rice) Clear Clear Urine Color Pale Yellow Uretheral (Rice) Bright Yellow Yellow Urine Odor Normal # Bowel Movements 0 General appearance: no acute distress Extremities Exam Additional comments: RUE and RLE neuro intact to light touch, moves fingers and toes well, dressings clean and intact OBJ DATA Labs CBC & Chem 7: 01/13/22 05:30 01/13/22 05:30 Labs: Abnormal Lab Results 01/13/22 01/13/22 01/12/22 05:30 05:30 05:29 WBC 14.1 H RBC 3.07 L Hgb 9.9 L Hct 29.8 L Immature Gran % (Auto) 0.6 H Neut % (Auto) Lymph % (Auto) White % (Auto) 16.3 H Lymph # (Auto) White # (Auto) 2.30 H Immature Gran # 0.09 H Absolute Neutrophils 8.08 H Sodium Anion Gap 7.0 L Glucose 110 H 119 H Calcium 8.3 L AST 32 H ALT Total Protein 5.6 L Albumin 3.1 L 01/12/22 01/11/22 01/11/22 05:29 20:26 20:26 WBC 12.7 H 18.5 H RBC Hgb Hct Immature Gran % (Auto) 0.6 H 0.6 H Neut % (Auto) 85.0 H Lymph % (Auto) 7.0 L White % (Auto) 13.8 H Lymph # (Auto) 1.29 L White # (Auto) 1.75 H 1.30 H Immature Gran # 0.07 H 0.11 H Absolute Neutrophils 8.04 H 15.76 H Sodium 132 L Anion Gap Glucose 187 H Calcium AST 41 H ALT 42 H Total Protein Albumin Meds: Medications Acetaminophen (Acetaminophen 325 Mg Tablet) 650 mg PO Q6HP PRN; Protocol PRN Reason: Per Pain Protocol/Fever > 101 Hydrocodone Bitart/Acetaminophen (Hydrocodone/Apap 5/325mg Tablet) 1 tab PO Q4HP PRN PRN Reason: PAIN LEVEL 3-6 Last Admin: 01/14/22 03:56 Dose: 1 tab Albuterol/Ipratropium (Ipratropium/Albuterol 3 Ml Ampul.Neb) 3 ml NEB Q4HP PRN PRN Reason: Shortness Of Breath Docusate Sodium (Docusate Sodium 100 Mg Capsule) 100 mg PO BID [facility] Last Admin: 01/14/22 07:36 Dose: 100 mg Enoxaparin Sodium (Enoxaparin 40 Mg/0.4 Ml Syringe) 40 mg SQ DAILY [facility] Last Admin: 01/14/22 07:36 Dose: 40 mg Potassium Chloride 40 meq/ (Dextrose) 520 mls @ 130 mls/hr IV UD PRN PRN Reason: Potassium < 3 Magnesium Sulfate (Magnesium Sulfate) 2 gm in 50 mls @ 50 mls/hr IV UD PRN PRN Reason: Magnesium </= 1.6 Sodium Chloride (Sodium Chloride 0.45%) 1,000 mls @ 75 mls/hr IV .[id number] [facility] Last Admin: 01/14/22 03:57 Dose: Not Given Morphine Sulfate (Morphine 4 Mg/Ml Vial) 0 mg IV Q3HP PRN PRN Reason: Pain Last Admin: 01/14/22 07:35 Dose: 3 mg Ondansetron HCl (Ondansetron 4 Mg/2 Ml Vial) 4 mg IV Q4HP PRN PRN Reason: Nausea And Vomiting Polyethylene Glycol (Polyethylene Glycol 3350 17 Gm Packet) 17 gm PO DAILYP PRN PRN Reason: Constipation Potassium Chloride (Potassium Chloride 20 Meq Tablet) 40 meq PO UD PRN PRN Reason: Potssium is 3-3.5 Potassium Chloride (Potassium Chloride 20 Meq Tablet) 40 meq PO UD PRN PRN Reason: Potassium < 3 Senna (Sennosides 1 Tablet) 2 tab PO DAILYP PRN PRN Reason: Constipation Sodium Chloride (0.9 % Sodium Chloride 10 Ml Syringe) 10 ml IV Q8 [facility] Last Admin: 01/14/22 07:36 Dose: 10 ml A/P Assessment and plan (1) Fracture of humerus: Plan: nonoperative treatment, NWB, gentle PROM OK Status: Acute (2) Fracture of wrist: Assessment and plan: POD#2 s/p ORIF-stable Plan: ok to remove brace for gentle ROM, NWB, sutures out 14 days post op Status: Acute (3) Tibial plateau fracture, right: Assessment and plan: POD#1 s/p ORIF Plan: AAROM OK, NWB, DVT prophylaxis, SNF placement, liberty out 2 weeks post op, f/u ortho in 4-6 weeks Status: Acute Time Spent With Patient Time: Total time spent is greater than 50% in coordination of care (as documented) at patient's floor/unit and/or counseling patient:
[2022-01-14 10:13] LABS: Basophils # (Auto) 0.03 K/mcL (0.00-0.30); Basophils % (Auto) 0.2 % (0.0-2.0); Eosinophils # (Auto) 0.01 K/mcL (0.00-0.70); Eosinophils % (Auto) 0.1 % (0.0-7.0); Hematocrit 34.7 % (34.1-44.9); Lymphocytes # (Auto) 3.44 K/mcL (1.50-4.80); Mean Cell Volume 102.1 fL (80.0-100.0); Mean Corpuscular HGB Conc 31.7 g/dL (31.0-36.0); Mean Platelet Volume 11.3 fL (8.8-12.5); Monocytes # (Auto) 2.46 K/mcL (0.10-0.90); Monocytes % (Auto) 15.7 % (1.0-12.0); Neutrophils % (Auto) 61.6 % (38.0-78.0); Platelet Count 163 K/mcL (140-440); Red Cell Distribution Width 13.2 % (11.5-14.5); WBC 15.6 K/mcL (4.5-11.0)
--- NOTE | 2022-01-14 10:52 | XRay Report ---
CLINICAL INFORMATION: Fever COMPARISON: 01/11/2022 TECHNIQUE: Portable FINDINGS: The heart size, mediastinum and pulmonary vessels are unremarkable. The lungs are clear. There are no effusions. The bones and soft tissues are within normal limits. IMPRESSION: Normal chest. Interpreted and Authenticated by: Vladimir Benavides 01/14/22
--- NOTE | 2022-01-14 17:40 | Internal Med Progress Note ---
SUBJECTIVE Subjective Patient information: Note initiated : 01/14/22 at 5:37 pm Service Date, if different from initiated Date: [] Patient: Danette Benedict 76 y/o F admitted on 01/11/22 for rt shoulder pain. Chief Complaint: [] Principal diagnosis: R proximal humerus fracture, R distal radius fracture, R tibial plateau fx Interval history: 01/13 Vitals stable overnight, patient's main complaint is right leg pain, plan is for right tibial plateau fracture ORIF today. 01/14 Patient had high-grade temperatures and an increase in white blood cell count from 14,100 to 15,600. Chest x-ray does not show any infiltrates. Urinalysis with reflex to culture pending. We will follow the patient's WBC and vitals overnight. The patient does have a Rice catheter placed for surgery yesterday, probably removed tomorrow. Case management working on placement. Physical exam Head: Atraumatic, normal inspection. Eyes: normal appearance, no scleral icterus. Neck: full ROM Respiratory: no respiratory distress. Cardiovascular: normal rate and rhythm, S1, S2. GI/Abdominal: soft, nontender, no guarding. : Indwelling Rice catheter Extremities: Right lower extremity tenderness, right upper extremity in sling Neurological: CN II-XII intact, intact motor, intact sensation. Psychiatric: normal mood. Skin: warm, normal color Constitutional Vitals: Vital Signs Temp Pulse Resp BP Pulse Ox O2 Del Method O2 Flow Rate 99.1 F H 85 14 115/62 97 2 01/14/22 15:11 01/14/22 15:11 01/14/22 15:11 01/14/22 15:11 01/14/22 15:11 01/14/22 15:11 01/14/22 00:03 Period Temp Pulse Resp BP Sys/Harper Pulse Ox O2 Del Method O2 Flow Rate Last 24 Hr 98.5 F-99.2 F 63-90 14-20 112-146/62-75 91-99 Nasal Cannula- Room Air 2 Intake and Output 01/14/22 01/14/22 01/14/22 03:59 11:59 19:59 Intake Total 1000 200 0 Output Total 2000 1300 Balance 1000 -1800 -1300 Intake & Output: Intake & Output 01/14/22 01/14/22 01/14/22 03:59 11:59 19:59 Intake Total 1000 200 0 Output Total 1999 1300 Balance 1000 -1800 -1300 Intake: IV 1000 Sodium Chloride 0.45% 1,000 ml 1000 @ 75 mls/hr IV .[id number] [facility] Rx# :[id number] Oral 200 0 Output: Urine Catheter Amount 1999 1299 Other: Meal Breakfast Percent of Meal Consumed 50% Feeding Ability Assist with Tray Set Up Urine Appearance Clear Clear Uretheral (Rice) Clear Clear Clear Urine Color Yellow Yellow Uretheral (Rice) Yellow Yellow Bright Yellow # Bowel Movements 0 OBJ DATA Labs CBC & Chem 7: 01/14/22 08:58 01/13/22 05:30 Labs: Abnormal Lab Results 01/14/22 01/13/22 01/13/22 08:58 05:30 05:30 WBC 15.6 H 14.1 H RBC 3.40 L 3.07 L Hgb 11.0 L 9.9 L Hct 29.8 L MCV 102.1 H Immature Gran % (Auto) 0.6 H Neut % (Auto) Lymph % (Auto) [place] % (Auto) 15.7 H 16.3 H Lymph # (Auto) [place] # (Auto) 2.46 H 2.30 H Immature Gran # 0.06 H 0.09 H Absolute Neutrophils 9.64 H 8.08 H Sodium Anion Gap 7.0 L Glucose 110 H Calcium 8.3 L AST ALT Total Protein 5.6 L Albumin 3.1 L 01/12/22 01/12/22 01/11/22 05:29 05:29 20:26 WBC 12.7 H RBC Hgb Hct MCV Immature Gran % (Auto) 0.6 H Neut % (Auto) Lymph % (Auto) [place] % (Auto) 13.8 H Lymph # (Auto) [place] # (Auto) 1.75 H Immature Gran # 0.07 H Absolute Neutrophils 8.04 H Sodium 132 L Anion Gap Glucose 119 H 187 H Calcium AST 32 H 41 H ALT 42 H Total Protein Albumin 01/11/22 20:26 WBC 18.5 H RBC Hgb Hct MCV Immature Gran % (Auto) 0.6 H Neut % (Auto) 85.0 H Lymph % (Auto) 7.0 L [place] % (Auto) Lymph # (Auto) 1.29 L [place] # (Auto) 1.30 H Immature Gran # 0.11 H Absolute Neutrophils 15.76 H Sodium Anion Gap Glucose Calcium AST ALT Total Protein Albumin Meds: Medications Acetaminophen (Acetaminophen 325 Mg Tablet) 650 mg PO Q6HP PRN; Protocol PRN Reason: Per Pain Protocol/Fever > 101 Hydrocodone Bitart/Acetaminophen (Hydrocodone/Apap 5/325mg Tablet) 1 tab PO Q4HP PRN PRN Reason: PAIN LEVEL 3-6 Last Admin: 01/14/22 15:14 Dose: 1 tab Albuterol/Ipratropium (Ipratropium/Albuterol 3 Ml Ampul.Neb) 3 ml NEB Q4HP PRN PRN Reason: Shortness Of Breath Docusate Sodium (Docusate Sodium 100 Mg Capsule) 100 mg PO BID [facility] Last Admin: 01/14/22 07:36 Dose: 100 mg Enoxaparin Sodium (Enoxaparin 40 Mg/0.4 Ml Syringe) 40 mg SQ DAILY [facility] Last Admin: 01/14/22 07:36 Dose: 40 mg Potassium Chloride 40 meq/ (Dextrose) 520 mls @ 130 mls/hr IV UD PRN PRN Reason: Potassium < 3 Magnesium Sulfate (Magnesium Sulfate) 2 gm in 50 mls @ 50 mls/hr IV UD PRN PRN Reason: Magnesium </= 1.6 Sodium Chloride (Sodium Chloride 0.45%) 1,000 mls @ 75 mls/hr IV .[id number] [facility] Last Admin: 01/14/22 15:15 Dose: Not Given Morphine Sulfate (Morphine 4 Mg/Ml Vial) 0 mg IV Q3HP PRN PRN Reason: Pain Last Admin: 01/14/22 10:48 Dose: 3 mg Ondansetron HCl (Ondansetron 4 Mg/2 Ml Vial) 4 mg IV Q4HP PRN PRN Reason: Nausea And Vomiting Polyethylene Glycol (Polyethylene Glycol 3350 17 Gm Packet) 17 gm PO DAILYP PRN PRN Reason: Constipation Potassium Chloride (Potassium Chloride 20 Meq Tablet) 40 meq PO UD PRN PRN Reason: Potssium is 3-3.5 Potassium Chloride (Potassium Chloride 20 Meq Tablet) 40 meq PO UD PRN PRN Reason: Potassium < 3 Senna (Sennosides 1 Tablet) 2 tab PO DAILYP PRN PRN Reason: Constipation Sodium Chloride (0.9 % Sodium Chloride 10 Ml Syringe) 10 ml IV Q8 [facility] Last Admin: 01/14/22 15:15 Dose: Not Given A/P Narrative A/P Narrative: Assessment:76-year-old female with a history of osteoporosis, Rheumatoid arthritis on Methotrexate admitted for multiple fractures sustained from a ground-level fall. The patient has a right wrist fracture status post ORIF 111, a right shoulder fracture managed conservatively and a right tibial plateau fracture. *GL Fall w/trauma and multiple Fx's: *Right wrist fracture: s/p ORIF (01/12) *Right shoulder fracture: *Right Tibial Plateau fracture: Status post ORIF (01/14) *Rheumatoid arthritis: on MTX *Osteoporosis: *Leukocytosis: *Resolved hyponatremia *Resolved transaminitis P: -Dr. Tian for orthopedic repair -PT/OT -Pain control -Follow WBC -Follow UA with reflex. -Splint to the right shoulder -wrist in splint -CM for placement needs -Likely remove Rice catheter tomorrow. -DVT prophylaxis: Lovenox -CODE STATUS: Full -Disposition: Low intensity rehab, pending placement. Time Spent With Patient Time: Total time spent is greater than 50% in coordination of care (as documented) at patient's floor/unit and/or counseling patient:
[2022-01-14 17:47] LABS: Appearance,Urine CLEAR (Clear); Bilirubin,Urine NEGATIVE (Negative); Color,Urine LT. YELLOW; Culture Indicated,Urine No; Glucose,Urine (UA) NEGATIVE (Negative); Ketones,Urine NEGATIVE (Negative); Leukocyte Esterase,Urine NEGATIVE /uL (Negative); Mucus,Urine FEW /hpf; Nitrate,Urine NEGATIVE (Negative); Protein,Urine NEGATIVE (Negative); Specific Gravity,Urine <= 1.005 (1.000-1.035); Urine Blood MODERATE ery/mcL (Negative); Urine RBC 2 /hpf (0-3); Urine Squamous Epithelial Cell 0 /hpf (0-4); Urine WBC 2 /hpf (0-4); Urobilinogen,Urine Normal
[2022-01-15] MEDS: morphine 4 MG/ML VIAL IV PRN ×3 (01:22→12:26)
[2022-01-15] MEDS: HYDROcodone/APAP 5/325MG TABLET PO PRN ×2 (01:23→08:06)
[2022-01-15] MEDS: 0.45 % SODIUM CHLORIDE 1,000 ML IV SCH (02:20)
[2022-01-15] MEDS: 0.9 % SODIUM CHLORIDE 10 ML SYRINGE IV SCH ×2 (05:41→12:27)
[2022-01-15] MEDS: DOCUSATE SODIUM 100 MG CAPSULE PO SCH (08:06)
[2022-01-15] MEDS: ENOXAPARIN 40 MG/0.4 ML SYRINGE SQ SCH (08:06)
[2022-01-15 11:23] LABS: Basophils # (Auto) 0.07 K/mcL (0.00-0.30); Basophils % (Auto) 0.6 % (0.0-2.0); Eosinophils % (Auto) 1.6 % (0.0-7.0); Hematocrit 29.9 % (34.1-44.9); Hemoglobin 10.5 g/dL (11.2-15.7); Lymphocytes # (Auto) 2.71 K/mcL (1.50-4.80); Lymphocytes % (Auto) 21.7 % (15.5-49.0); Mean Cell Volume 98.7 fL (80.0-100.0); Mean Corpuscular HGB Conc 35.1 g/dL (31.0-36.0); Mean Platelet Volume 11.3 fL (8.8-12.5); Monocytes # (Auto) 1.22 K/mcL (0.10-0.90); Monocytes % (Auto) 9.8 % (1.0-12.0); Neutrophils % (Auto) 65.5 % (38.0-78.0); Platelet Count 206 K/mcL (140-440); RBC 3.03 M/mcL (3.59-5.38); Red Cell Distribution Width 13.6 % (11.5-14.5); WBC 12.5 K/mcL (4.5-11.0)
--- NOTE | 2022-01-15 12:02 | Discharge Summary ---
Discharge Provider Provider IMPORTANT FOLLOW-UP INFORMATION FOR PCP: Patient information: Note initiated : 01/15/22 at 11:59 am Service Date, if different from initiated Date: [] Patient: Danette Benedict 76 y/o F admitted on 01/11/22 for rt shoulder pain. Chief Complaint: [] Date of admission: 01/11/22 21:05 Discharge date: 01/15/22 Primary care physician: Cayetano Ambrose Consults: 01/11/22 Consult to Physician [CONS] Stat Comment: Consulting Provider: Blayne Tian Reason For Exam: Physician to Consult Consult to Physician [CONS] Stat Comment: Consulting Provider: Twan Borrego Reason For Exam: Physician to Consult COURSE Hospital Course Hospital course: Ms. Benedict is a 76 year old F Presents to the ED after fall onto her right side getting out of the shower resulting in right shoulder pain and right wrist pain. No loss of consciousness did not hit her head. Patient in significant pain. Because of the severity of the wrist fracture is extremely difficult to reduce and is not maintaining reduction. Work-up in ED showed severely comminuted and displaced Colles' fracture of the wrist And nondisplaced fracture through the humeral head and lateral anatomic neck of the humerus. Dr. Tian was contacted orthopedic surgery. Laboratory pending including chest x-ray and EKG which will be reviewed. Patient has a history of rheumatoid arthritis and osteoporosis. On methotrexate and infusions. 01/12 Patient postop for ORIF of the wrist. Shoulder in sling. Patient bit drowsy postop. Reactive leukocytosis, sodium a little better. Transaminitis mild improving. Patient also found a fracture of the right tibial plateau. Trauma with multiple fractures. Patient quite debilitated. Further orthopedic treatment. 01/13 Vitals stable overnight, patient's main complaint is right leg pain, plan is for right tibial plateau fracture ORIF today. 01/14 Patient had high-grade temperatures and an increase in white blood cell count from 14,100 to 15,600. Chest x-ray does not show any infiltrates. Urinalysis was not consistent with UTI. We will follow the patient's WBC and vitals overnight. The patient does have a Rice catheter placed for surgery yesterday, probably removed tomorrow. Case management working on placement. 01/15 Patient had a high-grade temps overnight, no fevers. Leukocytosis improving. I suspect the high-grade fevers and leukocytosis are related to the patient's recent orthopedic surgeries. Removed indwelling Rice catheter. [facility] Holding home methotrexate until the patient follows up with orthopedic surgery and is cleared to resume methotrexate. I recommended bladder scans at [facility] follow the patient for urinary retention post Rice catheter removal. Follow-up with orthopedic surgery and primary care provider. Physical exam Head: Atraumatic, normal inspection. Eyes: normal appearance, no scleral icterus. Neck: full ROM Respiratory: no respiratory distress. Cardiovascular: normal rate and rhythm, S1, S2. GI/Abdominal: soft, nontender, no guarding. Extremities: Right lower extremity tenderness, right upper extremity in sling Neurological: CN II-XII intact, intact motor, intact sensation. Psychiatric: normal mood. Skin: warm, normal color Discharge diagnosis: Ground-level fall with multitrauma Secondary discharge diagnosis: Traumatic right wrist fracture status post-ORIF 01/12/2022 Traumatic right tibial plateau fracture status post ORIF 01/14/2022 Traumatic right proximal humeral fracture managed conservatively Rheumatoid arthritis Osteoporosis Time Spent with Patient Time attestation: Total time spent providing and/or coordinating discharge services: Time spent: Greater than 30 minutes EXAM Constitutional Vitals: Temp Pulse Resp BP Pulse Ox O2 Del Method O2 Flow Rate 98.9 F 84 16 154/78 97 2 01/15/22 06:34 01/15/22 06:34 01/15/22 06:34 01/15/22 06:34 01/15/22 06:34 01/15/22 06:34 01/14/22 00:03 Discharge Data Data Completed and Pending Labs on day of discharge: Labs from last 24 hours 01/15/22 01/14/22 10:43 16:50 WBC 12.5 H RBC 3.03 L Hgb 10.5 L Hct 29.9 L MCV 98.7 MCH 34.7 H MCHC 35.1 RDW 13.6 Plt Count 206 MPV 11.3 Immature Gran % (Auto) 0.8 H Neut % (Auto) 65.5 Lymph % (Auto) 21.7 [place] % (Auto) 9.8 Eos % (Auto) 1.6 Baso % (Auto) 0.6 Lymph # (Auto) 2.71 [place] # (Auto) 1.22 H Eos # (Auto) 0.20 Baso # (Auto) 0.07 Immature Gran # 0.10 H Absolute Neutrophils 8.19 H Urine Color Lt. yellow Urine Appearance Clear Urine pH 6.0 Ur Specific [place] <= 1.005 Urine Protein Negative Urine Glucose (UA) Negative Urine Ketones Negative Urine Occult Blood Moderate A Urine Nitrate Negative Urine Bilirubin Negative Urine Urobilinogen Normal Ur Leukocyte Esterase Negative Urine RBC 2 Urine WBC 2 Ur Squamous Epith Cells 0 Urine Bacteria None Urine Mucus Few A Ur Culture Indicated? No Discharge Plan Patient/Caregiver Discharge Instructions Activity: as per physical therapy Diet: Regular Diet Activity Restrictions/Additional Instructions: FERNANDO GONCALVES, NWB, DVT prophylaxis, SNF placement, [facility] 2 weeks post op, f/u ortho in 4-6 weeks Bladder scan every 8 hours for 48 hours after hospital discharge. Prescriptions: New acetaminophen 325 mg Tablet 650 mg PO Q6HP PRN (Reason: Per Pain Protocol/Fever > 101) Qty: 30 0RF enoxaparin 40 mg/0.4 mL Syringe 40 mg subcut DAILY 28 Days Qty: 4 0RF hydrocodone-acetaminophen 5-325 mg Tablet 1 tab PO Q4HP PRN (Reason: Pain Level 3-6) Qty: 7 0RF polyethylene glycol 3350 [HealthyLax] 17 gram Powder In Packet 17 g PO DAILYP PRN (Reason: Constipation) Qty: 30 1RF sennosides [Senna Lax] 8.6 mg Tablet 2 tab PO DAILYP PRN (Reason: Constipation) Qty: 30 0RF Continued cholecalciferol (vitamin D3) 100 mcg (4,000 unit) Capsule 2,000 mcg PO DAILY + DHA tablet 1 tab PO DAILY Discontinued methotrexate sodium [Methotrexate (Anti-Rheumatic)] 2.5 mg Tablet 12.5 mg PO WEEKLY Follow Up Plan Follow up with: Blayne Tian MD [Physician] - Cayetano Ambrose [Primary Care Provider] - Patient Disposition: Xfer SNF Rehab Potential: Fair I certify that the patient requires SNF services: Yes Overall status at discharge: patient is progressing back to baseline Discharge Orders: Discharge Order (Routine); Ordered 01/15/22 Ordered By: Miquel Castro
--- NOTE | 2022-01-15 13:04 | Orthopedic Progress Note ---
SUBJECTIVE Subjective Patient information: Note initiated : 01/15/22 at 1:00 pm Service Date, if different from initiated Date: [] Patient: Danette Benedict 76 y/o F admitted on 01/11/22 for rt shoulder pain. Chief Complaint: [eating and minimal pain and is ready for dc to snf] Principal diagnosis: R proximal humerus fracture, R distal radius fracture, R tibial plateau fx Constitutional Vitals: Vital Signs Temp Pulse Resp BP Pulse Ox O2 Del Method O2 Flow Rate 97.7 F 97 H 14 99/63 98 2 01/15/22 12:00 01/15/22 12:00 01/15/22 12:00 01/15/22 12:00 01/15/22 12:00 01/15/22 12:00 01/14/22 00:03 Period Temp Pulse Resp BP Sys/Harper Pulse Ox O2 Del Method O2 Flow Rate Last 24 Hr 97.7 F-99.3 F 76-97 14-16 99-154/62-78 94-98 Room Air-Room Air Intake and Output 01/15/22 01/15/22 01/15/22 03:59 11:59 19:59 Intake Total 1000 Output Total 2850 1000 Balance -1850 -1000 Intake & Output: Intake & Output 01/15/22 01/15/22 01/15/22 03:59 11:59 19:59 Intake Total 1000 Output Total 2850 1000 Balance -1850 -1000 Intake: IV 1000 Sodium Chloride 0.45% 1,000 ml 1000 @ 75 mls/hr IV .[id number] [facility] Rx# :[id number] Output: Urine Catheter Amount 2850 1000 Uretheral (Rice) 1000 Other: Meal Lunch Percent of Meal Consumed 100% Feeding Ability Assist with Tray Set Up Urine Appearance Clear Urine Color Yellow Uretheral (Rice) Dark Yellow Expanded Upper Extremity Exam Upper Arm exam: Present swelling Expanded Lower Extremity Exam Hip exam: Present swelling Gait: Present not tested/not observed and unable to bear weight OBJ DATA Labs CBC & Chem 7: 01/15/22 10:43 01/13/22 05:30 Labs: Abnormal Lab Results 01/15/22 01/14/22 01/14/22 10:43 16:50 08:58 WBC 12.5 H 15.6 H RBC 3.03 L 3.40 L Hgb 10.5 L 11.0 L Hct 29.9 L MCV 102.1 H MCH 34.7 H Immature Gran % (Auto) 0.8 H Hand % (Auto) 15.7 H Hand # (Auto) 1.22 H 2.46 H Immature Gran # 0.10 H 0.06 H Absolute Neutrophils 8.19 H 9.64 H Anion Gap Glucose Calcium Total Protein Albumin Urine Occult Blood Moderate A Urine Mucus Few A 01/13/22 01/13/22 05:30 05:30 WBC 14.1 H RBC 3.07 L Hgb 9.9 L Hct 29.8 L MCV MCH Immature Gran % (Auto) 0.6 H Hand % (Auto) 16.3 H Hand # (Auto) 2.30 H Immature Gran # 0.09 H Absolute Neutrophils 8.08 H Anion Gap 7.0 L Glucose 110 H Calcium 8.3 L Total Protein 5.6 L Albumin 3.1 L Urine Occult Blood Urine Mucus Meds: Medications Acetaminophen (Acetaminophen 325 Mg Tablet) 650 mg PO Q6HP PRN; Protocol PRN Reason: Per Pain Protocol/Fever > 101 Hydrocodone Bitart/Acetaminophen (Hydrocodone/Apap 5/325mg Tablet) 1 tab PO Q4HP PRN PRN Reason: PAIN LEVEL 3-6 Last Admin: 01/15/22 08:06 Dose: 1 tab Albuterol/Ipratropium (Ipratropium/Albuterol 3 Ml Ampul.Neb) 3 ml NEB Q4HP PRN PRN Reason: Shortness Of Breath Docusate Sodium (Docusate Sodium 100 Mg Capsule) 100 mg PO BID [facility] Last Admin: 01/15/22 08:06 Dose: 100 mg Enoxaparin Sodium (Enoxaparin 40 Mg/0.4 Ml Syringe) 40 mg SQ DAILY [facility] Last Admin: 01/15/22 08:06 Dose: 40 mg Potassium Chloride 40 meq/ (Dextrose) 520 mls @ 130 mls/hr IV UD PRN PRN Reason: Potassium < 3 Magnesium Sulfate (Magnesium Sulfate) 2 gm in 50 mls @ 50 mls/hr IV UD PRN PRN Reason: Magnesium </= 1.6 Sodium Chloride (Sodium Chloride 0.45%) 1,000 mls @ 75 mls/hr IV .[id number] [facility] Last Infusion: 01/15/22 08:52 Dose: Infused Morphine Sulfate (Morphine 4 Mg/Ml Vial) 0 mg IV Q3HP PRN PRN Reason: Pain Last Admin: 01/15/22 12:26 Dose: 3 mg Ondansetron HCl (Ondansetron 4 Mg/2 Ml Vial) 4 mg IV Q4HP PRN PRN Reason: Nausea And Vomiting Polyethylene Glycol (Polyethylene Glycol 3350 17 Gm Packet) 17 gm PO DAILYP PRN PRN Reason: Constipation Last Admin: 01/15/22 01:23 Dose: 17 gm Potassium Chloride (Potassium Chloride 20 Meq Tablet) 40 meq PO UD PRN PRN Reason: Potssium is 3-3.5 Potassium Chloride (Potassium Chloride 20 Meq Tablet) 40 meq PO UD PRN PRN Reason: Potassium < 3 Senna (Sennosides 1 Tablet) 2 tab PO DAILYP PRN PRN Reason: Constipation Sodium Chloride (0.9 % Sodium Chloride 10 Ml Syringe) 10 ml IV Q8 [place] Last Admin: 01/15/22 12:27 Dose: 10 ml A/P Assessment and plan (1) Tibial plateau fracture, right: Status: Acute (2) Fracture of humerus: Status: Acute (3) Fracture of wrist: Status: Acute Plan dc to snf Sepsis Sepsis Identified: No Time Spent With Patient Time: Total time spent is greater than 50% in coordination of care (as documented) at patient's floor/unit and/or counseling patient: Total time spent with greater than 50% in coordination of care (as documented) at patient's floor/unit and/or counseling patient:: less than 15 minutes
== END 2022-01-15 13:10 | DRG 493 ==
LOC: ED 16:44 → MEDSUR 21:05
PROVIDERS: ADMIT Internal Medicine; ATTEND Internal Medicine

== ENCOUNTER 2023-12-14 17:49 | Inpatient (IN) ==
[2023-12-14] MEDS: HYDROmorphone 0.5 MG/0.5 ML SYRINGE IV PRN ×2 (18:26→22:41)
[2023-12-14] MEDS: HYDROcodone/APAP 5/325MG TABLET PO ONE (20:02)
[2023-12-14 20:29] LABS: Basophils # (Auto) 0.03 K/mcL (0.00-0.30); Basophils % (Auto) 0.2 % (0.0-2.0); Eosinophils # (Auto) 0.11 K/mcL (0.00-0.70); Eosinophils % (Auto) 0.8 % (0.0-7.0); Hematocrit 45.2 % (34.1-44.9); Hemoglobin 14.7 g/dL (11.2-15.7); Lymphocytes # (Auto) 1.81 K/mcL (1.50-4.80); Lymphocytes % (Auto) 13.2 % (15.5-49.0); Mean Cell Volume 102.5 fL (80.0-100.0); Mean Corpuscular HGB Conc 32.5 g/dL (31.0-36.0); Mean Platelet Volume 10.9 fL (8.8-12.5); Monocytes # (Auto) 1.02 K/mcL (0.10-0.90); Monocytes % (Auto) 7.5 % (1.0-12.0); Neutrophils % (Auto) 77.2 % (38.0-78.0); Platelet Count 257 K/mcL (140-440); RBC 4.41 M/mcL (3.59-5.38); Red Cell Distribution Width 12.6 % (11.5-14.5); WBC 13.7 K/mcL (4.5-11.0)
[2023-12-14 20:36] LABS: ALT/SGPT 21 U/L (<40); AST/SGOT 35 U/L (<32); Albumin 4.4 gm/dL (3.2-5.2); Albumin/Globulin Ratio 1.1 (1.0-2.3); Alkaline Phosphatase 126 U/L (39-117); Bilirubin,Total 0.4 mg/dL (0.1-1.0); Blood Urea Nitrogen 20 mg/dL (8-23); Calcium 9.7 mg/dL (8.6-10.4); Carbon Dioxide 21 mmol/L (22-30); Chloride 101 mmol/L (96-108); Globulin 4.1 gm/dL (2.2-3.7); Glomerular Filtration Rate 81; Glucose 109 mg/dL (70-105); Potassium 4.1 mmol/L (3.3-5.1); Sodium 138 mmol/L (133-145)
[2023-12-14] MEDS ORDERED: CYCLOBENZAPRINE 10 MG TABLET PO PRN (20:57)
[2023-12-14] MEDS ORDERED: BISACODYL 10 MG SUPP.RECT PR PRN (21:36)
[2023-12-14 21:50] LABS: Appearance,Urine Clear (Clear); Bilirubin,Urine Negative (Negative); Color,Urine Yellow; Glucose,Urine (UA) Negative (Negative); Ketones,Urine 15 mg/dL (Negative); Leukocyte Esterase,Urine Negative /uL (Negative); Mucus,Urine Few /hpf; Nitrate,Urine Negative (Negative); Protein,Urine 30 mg/dL (Negative); Specific Gravity,Urine >= 1.030 (1.000-1.035); Urine Blood Trace-intact ery/mcL (Negative); Urine RBC 7 /hpf (0-3); Urine Squamous Epithelial Cell 2 /hpf (0-4); Urine WBC 2 /hpf (0-4); Urobilinogen,Urine Normal
[2023-12-14] MEDS: METHOCARBAMOL 750 MG TABLET PO SCH (22:40)
[2023-12-14] MEDS: POLYETHYLENE GLYCOL 3350 17 GM PACKET PO ONE (22:41)
[2023-12-14] MEDS: SENNOSIDES 1 TABLET PO SCH (22:41)
[2023-12-14] MEDS: HEPARIN 5,000 UNIT/ML VIAL SQ SCH (23:22)
[2023-12-15] MEDS: HYDROCODONE/APAP 7.5/325MG TABLET PO PRN (00:02)
[2023-12-15] MEDS: 0.9 % SODIUM CHLORIDE 10 ML SYRINGE IV SCH (00:03)
[2023-12-15] MEDS: 0.9 % SODIUM CHLORIDE 1,000 ML IV SCH (00:03)
[2023-12-15] MEDS: HYDROmorphone 1 MG/ML SYRINGE IV ONE (02:13)
[2023-12-15] MEDS: HYDROmorphone 1 MG/ML SYRINGE ONE ×2 (03:21→21:22)
[2023-12-15 06:05] LABS: Basophils # (Auto) 0.02 K/mcL (0.00-0.30); Basophils % (Auto) 0.2 % (0.0-2.0); Eosinophils # (Auto) 0.04 K/mcL (0.00-0.70); Eosinophils % (Auto) 0.3 % (0.0-7.0); Hematocrit 36.6 % (34.1-44.9); Lymphocytes # (Auto) 1.46 K/mcL (1.50-4.80); Lymphocytes % (Auto) 11.3 % (15.5-49.0); Mean Cell Volume 104.3 fL (80.0-100.0); Mean Corpuscular HGB Conc 32.8 g/dL (31.0-36.0); Mean Platelet Volume 10.5 fL (8.8-12.5); Monocytes # (Auto) 1.39 K/mcL (0.10-0.90); Monocytes % (Auto) 10.7 % (1.0-12.0); Platelet Count 210 K/mcL (140-440); RBC 3.51 M/mcL (3.59-5.38); Red Cell Distribution Width 12.8 % (11.5-14.5)
[2023-12-15 06:57] LABS: ALT/SGPT 15 U/L (<40); AST/SGOT 24 U/L (<32); Albumin 3.7 gm/dL (3.2-5.2); Albumin/Globulin Ratio 1.2 (1.0-2.3); Alkaline Phosphatase 91 U/L (39-117); Bilirubin,Total 0.6 mg/dL (0.1-1.0); Blood Urea Nitrogen 18 mg/dL (8-23); Calcium 8.6 mg/dL (8.6-10.4); Carbon Dioxide 20 mmol/L (22-30); Chloride 103 mmol/L (96-108); Globulin 3.2 gm/dL (2.2-3.7); Glomerular Filtration Rate 86; Glucose 162 mg/dL (70-105); Potassium 4.4 mmol/L (3.3-5.1); Sodium 137 mmol/L (133-145)
[2023-12-15] MEDS: LOSARTAN 25 MG TABLET PO SCH (08:44)
[2023-12-15] MEDS: FOLIC ACID 1 MG TABLET PO SCH (08:44)
[2023-12-15] MEDS: DULoxetine 30 MG CAPSULE PO SCH (08:45)
[2023-12-15] MEDS: LEVOFLOXACIN 250 MG TABLET PO SCH (09:36)
[2023-12-15] MEDS ORDERED: fentaNYL 100 MCG/2 ML VIAL ONE (17:17)
[2023-12-15] MEDS ORDERED: SUGAMMADEX SODIUM 200 MG/2 ML VIAL IV ONE (17:17)
[2023-12-15] MEDS ORDERED: ROCURONIUM 10 MG/ML ML IV ONE (17:17)
[2023-12-15] MEDS ORDERED: PROPOFOL 200 MG/20 ML VIAL IV ONE (17:17)
[2023-12-15] MEDS ORDERED: DEXAMETHASONE 10 MG/ML VIAL ONE (17:17)
[2023-12-15] MEDS ORDERED: ONDANSETRON 4 MG/2 ML VIAL ONE (17:17)
[2023-12-15] MEDS ORDERED: GLYCOPYRROLATE 0.2 MG/ML VIAL IV ONE (17:17)
[2023-12-15] MEDS ORDERED: TRANEXAMIC ACID 1,000 MG/10 ML VIAL ONE (17:20)
[2023-12-15] MEDS: ceFAZolin 2 GM in DEXTROSE 5% IN WATER 50 ML IV SCH ×2 (18:30→18:50)
[2023-12-15] MEDS ORDERED: PHENYLephrine 1 MG/10 ML SYRINGE (ANEST) ONE (18:53)
[2023-12-15] MEDS ORDERED: MAGNESIUM SULFATE 2 GM/50 ML BAG IV ONE (19:04)
[2023-12-15] MEDS ORDERED: HYDROmorphone 0.5 MG/0.5 ML SYRINGE ONE (19:12)
[2023-12-15] MEDS ORDERED: ONDANSETRON 4 MG/2 ML VIAL IV PRN (19:25)
[2023-12-15] MEDS ORDERED: IPRATROPIUM/ALBUTEROL 3 ML AMPUL.NEB NEB PRN (19:25)
[2023-12-15] MEDS ORDERED: BENZOCAINE/MENTHOL 1 LOZENGE PO PRN (19:53)
[2023-12-15] MEDS ORDERED: METOPROLOL TARTRATE 5 MG/5 ML VIAL IV ONE (19:58)
[2023-12-15] MEDS: fentaNYL 100 MCG/2 ML VIAL IV PRN (20:12)
[2023-12-15] MEDS: HYDROmorphone 1 MG/ML SYRINGE IV PRN (21:09)
[2023-12-15] MEDS: 0.9 % SODIUM CHLORIDE 500 ML IV SCH (22:00)
[2023-12-15] MEDS: LACTATED RINGERS 1,000 ML IV SCH ×2 (22:06→22:08)
[2023-12-15] MEDS: METHOCARBAMOL 750 MG TABLET PO SCH (22:07)
[2023-12-15] MEDS: fentaNYL 100 MCG/2 ML VIAL ONE (22:08)
[2023-12-15] MEDS: ACETAMINOPHEN 1,000 MG/100 ML BAG IV PRN (22:09)
[2023-12-15] MEDS: oxyCODONE IR 5 MG TABLET PO PRN (23:36)
[2023-12-16] MEDS: ceFAZolin 1 GM VIAL IV SCH (02:10)
[2023-12-16 06:46] LABS: Basophils # (Auto) 0.01 K/mcL (0.00-0.30); Basophils % (Auto) 0.1 % (0.0-2.0); Eosinophils # (Auto) 0 K/mcL (0.00-0.70); Eosinophils % (Auto) 0 % (0.0-7.0); Hematocrit 29.3 % (34.1-44.9); Hemoglobin 9.5 g/dL (11.2-15.7); Lymphocytes # (Auto) 0.61 K/mcL (1.50-4.80); Lymphocytes % (Auto) 6.4 % (15.5-49.0); Mean Cell Volume 105.4 fL (80.0-100.0); Mean Corpuscular HGB Conc 32.4 g/dL (31.0-36.0); Mean Platelet Volume 10.7 fL (8.8-12.5); Monocytes # (Auto) 0.91 K/mcL (0.10-0.90); Monocytes % (Auto) 9.6 % (1.0-12.0); Neutrophils % (Auto) 83.7 % (38.0-78.0); Platelet Count 151 K/mcL (140-440); RBC 2.78 M/mcL (3.59-5.38); WBC 9.5 K/mcL (4.5-11.0)
[2023-12-16 06:58] LABS: ALT/SGPT 10 U/L (<40); AST/SGOT 17 U/L (<32); Albumin 3.2 gm/dL (3.2-5.2); Albumin/Globulin Ratio 1.2 (1.0-2.3); Alkaline Phosphatase 67 U/L (39-117); Bilirubin,Total 0.3 mg/dL (0.1-1.0); Blood Urea Nitrogen 14 mg/dL (8-23); Calcium 8.2 mg/dL (8.6-10.4); Carbon Dioxide 22 mmol/L (22-30); Chloride 101 mmol/L (96-108); Globulin 2.7 gm/dL (2.2-3.7); Glomerular Filtration Rate 86; Glucose 168 mg/dL (70-105); Potassium 4.3 mmol/L (3.3-5.1); Sodium 134 mmol/L (133-145)
[2023-12-16] MEDS: IBUPROFEN 800 MG TABLET PO PRN (09:23)
[2023-12-16] MEDS: 0.9 % SODIUM CHLORIDE 500 ML IV ONE ×2 (18:15→18:59)
[2023-12-16 19:55] LABS: Hematocrit 26.6 % (34.1-44.9); Hemoglobin 8.5 g/dL (11.2-15.7)
[2023-12-16] MEDS: APIXABAN 2.5 MG TABLET PO SCH (20:16)
[2023-12-16 23:57] LABS: Hematocrit 26.8 % (34.1-44.9); Hemoglobin 8.6 g/dL (11.2-15.7)
[2023-12-17 07:19] LABS: Basophils # (Auto) 0.04 K/mcL (0.00-0.30); Basophils % (Auto) 0.5 % (0.0-2.0); Eosinophils # (Auto) 0.43 K/mcL (0.00-0.70); Eosinophils % (Auto) 5.8 % (0.0-7.0); Hematocrit 26.7 % (34.1-44.9); Hemoglobin 8.3 g/dL (11.2-15.7); Lymphocytes # (Auto) 1.81 K/mcL (1.50-4.80); Lymphocytes % (Auto) 24.3 % (15.5-49.0); Mean Corpuscular HGB Conc 31.1 g/dL (31.0-36.0); Mean Platelet Volume 10.6 fL (8.8-12.5); Monocytes % (Auto) 14.8 % (1.0-12.0); Neutrophils % (Auto) 54.3 % (38.0-78.0); Platelet Count 120 K/mcL (140-440); RBC 2.45 M/mcL (3.59-5.38); Red Cell Distribution Width 13.4 % (11.5-14.5); WBC 7.4 K/mcL (4.5-11.0)
[2023-12-17 07:40] LABS: ALT/SGPT 7 U/L (<40); AST/SGOT 17 U/L (<32); Albumin/Globulin Ratio 1.2 (1.0-2.3); Alkaline Phosphatase 58 U/L (39-117); Bilirubin,Total 0.3 mg/dL (0.1-1.0); Blood Urea Nitrogen 19 mg/dL (8-23); Calcium 8.2 mg/dL (8.6-10.4); Carbon Dioxide 22 mmol/L (22-30); Chloride 110 mmol/L (96-108); Globulin 2.5 gm/dL (2.2-3.7); Glomerular Filtration Rate 81; Glucose 98 mg/dL (70-105); Sodium 142 mmol/L (133-145)
[2023-12-17] MEDS: TRANEXAMIC ACID 1,000 MG/10 ML VIAL IV ONE (09:31)
[2023-12-17] MEDS: ONDANSETRON 4 MG/2 ML VIAL IV PRN (10:03)
[2023-12-18 07:12] LABS: Basophils # (Auto) 0.05 K/mcL (0.00-0.30); Basophils % (Auto) 0.5 % (0.0-2.0); Eosinophils # (Auto) 0.53 K/mcL (0.00-0.70); Eosinophils % (Auto) 5.7 % (0.0-7.0); Hematocrit 26.7 % (34.1-44.9); Hemoglobin 8.5 g/dL (11.2-15.7); Lymphocytes # (Auto) 1.97 K/mcL (1.50-4.80); Lymphocytes % (Auto) 21.2 % (15.5-49.0); Mean Cell Volume 106.8 fL (80.0-100.0); Mean Corpuscular HGB Conc 31.8 g/dL (31.0-36.0); Mean Platelet Volume 10.5 fL (8.8-12.5); Monocytes # (Auto) 1.14 K/mcL (0.10-0.90); Monocytes % (Auto) 12.3 % (1.0-12.0); Neutrophils % (Auto) 59.9 % (38.0-78.0); Platelet Count 165 K/mcL (140-440); WBC 9.3 K/mcL (4.5-11.0)
[2023-12-18 07:29] LABS: ALT/SGPT 8 U/L (<40); AST/SGOT 26 U/L (<32); Albumin 2.9 gm/dL (3.2-5.2); Albumin/Globulin Ratio 1.1 (1.0-2.3); Alkaline Phosphatase 63 U/L (39-117); Bilirubin,Total 0.4 mg/dL (0.1-1.0); Blood Urea Nitrogen 18 mg/dL (8-23); Calcium 8.2 mg/dL (8.6-10.4); Carbon Dioxide 23 mmol/L (22-30); Chloride 107 mmol/L (96-108); Globulin 2.6 gm/dL (2.2-3.7); Glomerular Filtration Rate 81; Glucose 100 mg/dL (70-105); Potassium 4.5 mmol/L (3.3-5.1); Sodium 139 mmol/L (133-145)
[2023-12-18] MEDS: LOSARTAN 25 MG TABLET PO SCH (08:17)
[2023-12-19 07:20] LABS: Basophils # (Auto) 0.04 K/mcL (0.00-0.30); Basophils % (Auto) 0.5 % (0.0-2.0); Eosinophils # (Auto) 0.34 K/mcL (0.00-0.70); Eosinophils % (Auto) 4.1 % (0.0-7.0); Hematocrit 26.1 % (34.1-44.9); Hemoglobin 8.6 g/dL (11.2-15.7); Lymphocytes # (Auto) 2.06 K/mcL (1.50-4.80); Lymphocytes % (Auto) 24.7 % (15.5-49.0); Mean Cell Volume 102.8 fL (80.0-100.0); Mean Platelet Volume 10.5 fL (8.8-12.5); Monocytes # (Auto) 1.34 K/mcL (0.10-0.90); Monocytes % (Auto) 16.1 % (1.0-12.0); Neutrophils % (Auto) 53.5 % (38.0-78.0); Platelet Count 191 K/mcL (140-440); RBC 2.54 M/mcL (3.59-5.38); WBC 8.3 K/mcL (4.5-11.0)
[2023-12-19 07:40] LABS: ALT/SGPT 8 U/L (<40); AST/SGOT 17 U/L (<32); Albumin 3.1 gm/dL (3.2-5.2); Albumin/Globulin Ratio 1.2 (1.0-2.3); Alkaline Phosphatase 67 U/L (39-117); Bilirubin,Total 0.5 mg/dL (0.1-1.0); Blood Urea Nitrogen 14 mg/dL (8-23); Calcium 8.3 mg/dL (8.6-10.4); Carbon Dioxide 24 mmol/L (22-30); Chloride 107 mmol/L (96-108); Globulin 2.6 gm/dL (2.2-3.7); Glomerular Filtration Rate 91; Glucose 103 mg/dL (70-105); Potassium 3.6 mmol/L (3.3-5.1); Sodium 140 mmol/L (133-145)
[2023-12-19] MEDS: APIXABAN 2.5 MG TABLET PO SCH (09:03)
[2023-12-19] MEDS: POLYETHYLENE GLYCOL 3350 17 GM PACKET PO PRN (11:26)
[2023-12-19] MEDS: LIDOCAINE 4% TOP PATCH TOPICAL SCH (11:28)
[2023-12-20 07:15] LABS: ALT/SGPT 7 U/L (<40); AST/SGOT 17 U/L (<32); Albumin 3.2 gm/dL (3.2-5.2); Albumin/Globulin Ratio 1.1 (1.0-2.3); Alkaline Phosphatase 65 U/L (39-117); Bilirubin,Total 0.6 mg/dL (0.1-1.0); Blood Urea Nitrogen 14 mg/dL (8-23); Calcium 8.4 mg/dL (8.6-10.4); Carbon Dioxide 23 mmol/L (22-30); Chloride 102 mmol/L (96-108); Globulin 2.8 gm/dL (2.2-3.7); Glomerular Filtration Rate 98; Glucose 97 mg/dL (70-105); Potassium 3.5 mmol/L (3.3-5.1); Sodium 137 mmol/L (133-145)
[2023-12-20 08:07] LABS: Basophils # (Auto) 0.05 K/mcL (0.00-0.30); Basophils % (Auto) 0.6 % (0.0-2.0); Eosinophils # (Auto) 0.26 K/mcL (0.00-0.70); Hematocrit 26.7 % (34.1-44.9); Hemoglobin 8.9 g/dL (11.2-15.7); Lymphocytes # (Auto) 1.76 K/mcL (1.50-4.80); Lymphocytes % (Auto) 20.1 % (15.5-49.0); Mean Cell Volume 102.3 fL (80.0-100.0); Mean Corpuscular HGB Conc 33.3 g/dL (31.0-36.0); Mean Platelet Volume 10.5 fL (8.8-12.5); Neutrophils % (Auto) 57.7 % (38.0-78.0); Platelet Count 211 K/mcL (140-440); RBC 2.61 M/mcL (3.59-5.38); Red Cell Distribution Width 12.9 % (11.5-14.5); WBC 8.8 K/mcL (4.5-11.0)
[2023-12-20] MEDS ORDERED: LIDOCAINE 4% TOP PATCH TOPICAL SCH (10:00)
== END 2023-12-20 13:25 | DRG 481 ==
LOC: ED 17:49 → MEDSUR 21:32
PROVIDERS: ADMIT Student in an Organized Health Care Education/Training Program; ATTEND Student in an Organized Health Care Education/Training Program